=== PATIENT | female | born 1935 | race Caucasian/White ===

== ENCOUNTER 2017-09-08 14:55 | Observation (INO) | payer MEDICARE, OTHER ==
[2017-09-08] MEDS: ONDANSETRON 4 MG INJ IV (15:39)
[2017-09-08] MEDS: NITROGLYCERIN 2% 1 GM OINT PKT TD (15:40)
[2017-09-08] MEDS: ASPIRIN 81 MG TAB PO (15:40)
[2017-09-08 15:41] LABS: ADD MAN DIFF? NO
[2017-09-08 15:48] LABS: WHITE BLOOD COUNT 8.7 10^3/ul (4.8-10.8)
[2017-09-08 15:48] LABS: BASOPHILS % 0.5 % (0.0-2.0); EOSINOPHILS # 0.2 10^3/ul (0.0-0.5); HEMATOCRIT 37.6 % (37.0-47.0); HEMOGLOBIN 11.5 g/dl (12.0-16.0); LYMPHOCYTES % 23.3 % (15.0-51.0); MEAN CORPUSCULAR HEMOGLOBIN 26.7 pg (29.0-33.0); MEAN CORPUSCULAR HGB CONC 30.6 g/dl (32.0-37.0); MEAN CORPUSCULAR VOLUME 87.4 fl (82.0-101.0); MEAN PLATELET VOLUME 10.9 fl (7.4-10.4); MONOCYTE # 0.8 10^3/ul (0.3-0.9); NEUTROPHIL # 5.7 10^3/ul (1.6-7.5); NEUTROPHILS % 64.9 % (39.0-77.0); PLATELET COUNT 277 10^3/UL (140-415); RED CELL DISTRIBUTION WIDTH 14.5 % (11.5-14.5)
[2017-09-08 16:06] LABS: ANION GAP 8 (8-16); BLOOD UREA NITROGEN 22 mg/dl (7-20); CALCIUM 8.6 mg/dl (8.4-10.2); CARBON DIOXIDE 34 mmol/L (21-31); CHLORIDE 110 mmol/L (97-110); CREATININE 1.04 mg/dl (0.44-1.00); GLUCOSE 97 mg/dl (70-220); POTASSIUM 5.1 mmol/L (3.5-5.1); SODIUM 147 mmol/L (135-144)
[2017-09-08 16:18] LABS: TROPONIN-I < 0.010 ng/ml (0.000-0.120)
[2017-09-08] MEDS: morphine 4 MG/ML VIAL IV ×2 (16:19→17:40)
[2017-09-08] MEDS: ACETAMINOPHEN 325 MG TAB PO (16:23)
[2017-09-08 17:13] LABS: B-TYPE NATRIURETIC PEPTIDE 1220 PG/ML (0-450)
[2017-09-08] MEDS ORDERED: ONDANSETRON 4 MG INJ IV (18:30)
[2017-09-08] MEDS ORDERED: ACETAMINOPHEN 325 MG TAB PO (18:30)
[2017-09-08] MEDS: FUROSEMIDE 40 MG INJ IV (19:40)
[2017-09-08] MEDS: APIXABAN 5 MG TABLET PO (21:03)
[2017-09-08] MEDS: LOSARTAN 25 MG TAB PO (21:04)
[2017-09-08 23:33] LABS: CREATINE KINASE 73 IU/L (23-200)
[2017-09-08 23:45] LABS: CK INDEX 1.1; CK-MB 0.78 ng/ml (0.0-2.4)
[2017-09-08 23:46] LABS: TROPONIN-I < 0.010 ng/ml (0.000-0.120)
[2017-09-09 03:48] LABS: CREATINE KINASE 66 IU/L (23-200)
[2017-09-09 04:01] LABS: CK INDEX 1.1; TROPONIN-I 0.017 ng/ml (0.000-0.120)
[2017-09-09] MEDS: AMIODARONE 200 MG TAB PO (08:47)
[2017-09-09] MEDS: LOSARTAN 25 MG TAB PO ×2 (08:47→21:37)
[2017-09-09] MEDS: APIXABAN 5 MG TABLET PO ×2 (08:47→21:34)
[2017-09-09] MEDS: DILTIAZEM (CD) 240 MG CAP PO (08:47)
[2017-09-09] MEDS: FUROSEMIDE 20 MG INJ IV (08:53)
[2017-09-09] MEDS ORDERED: IBUPROFEN 200 MG TAB PO (09:30)
[2017-09-09] MEDS: IBUPROFEN 200 MG TAB PO (13:43)
[2017-09-09] MEDS: FAMOTIDINE 20 MG TAB PO (13:44)
[2017-09-09] MEDS: CELECOXIB 100 MG CAP PO ×2 (13:46→22:18)
[2017-09-09 14:56] LABS: HEMOGLOBIN A1C 6.1 % (0-5.9)
[2017-09-09 15:40] LABS: ADD UMIC YES; UR ASCORBIC ACID NEGATIVE (NEGATIVE); UR BILIRUBIN (Dip) NEGATIVE (NEGATIVE); UR BLOOD (Dip) 1+ mg/dL (NEGATIVE); UR CLARITY CLEAR (CLEAR); UR COLOR YELLOW (YELLOW); UR GLUCOSE (Dip) NEGATIVE (NEGATIVE); UR KETONES (Dip) NEGATIVE (NEGATIVE); UR LEUKOCYTE ESTERASE (Dip) NEGATIVE Leu/ul (NEGATIVE); UR NITRITE (Dip) NEGATIVE (NEGATIVE); UR RBC 4 /HPF (0-5); UR SPECIFIC GRAVITY (Dip) 1.016 (1.003-1.030); UR TOTAL PROTEIN (Dip) NEGATIVE (NEGATIVE); UR UROBILINOGEN (Dip) NEGATIVE (NEGATIVE); UR WBC 0 /HPF (0-5)
[2017-09-09 16:48] LABS: CHOL/HDL RATIO 3.5 RATIO; HDL CHOLESTEROL 53 mg/dl (33-92); LDL CHOLESTEROL,CALCULATED 104 mg/dl; TRIGLYCERIDES 159 mg/dl (0-149)
[2017-09-09 16:48] LABS: CHOLESTEROL 189 mg/dl (100-200)
[2017-09-09] MEDS: ONDANSETRON 4 MG INJ IV (23:25)
[2017-09-09] MEDS: morphine 2 MG INJ IV (23:26)
[2017-09-10] MEDS: FUROSEMIDE 40 MG TAB PO (06:01)
[2017-09-10 09:10] LABS: ADD MAN DIFF? NO
[2017-09-10 09:14] LABS: WHITE BLOOD COUNT 10.1 10^3/ul (4.8-10.8)
[2017-09-10 09:14] LABS: BASOPHILS % 0.3 % (0.0-2.0); EOSINOPHILS # 0.2 10^3/ul (0.0-0.5); EOSINOPHILS % 1.9 % (0.0-7.0); HEMATOCRIT 38.2 % (37.0-47.0); HEMOGLOBIN 11.6 g/dl (12.0-16.0); LYMPHOCYTES # 2.9 10^3/ul (0.8-2.9); LYMPHOCYTES % 28.5 % (15.0-51.0); MEAN CORPUSCULAR HEMOGLOBIN 26.4 pg (29.0-33.0); MEAN CORPUSCULAR HGB CONC 30.4 g/dl (32.0-37.0); MONOCYTE # 0.7 10^3/ul (0.3-0.9); NEUTROPHIL # 6.3 10^3/ul (1.6-7.5); NEUTROPHILS % 61.9 % (39.0-77.0); PLATELET COUNT 282 10^3/UL (140-415); RED BLOOD COUNT 4.39 10^6/ul (4.20-5.40); RED CELL DISTRIBUTION WIDTH 14.6 % (11.5-14.5)
[2017-09-10] MEDS: LOSARTAN 25 MG TAB PO (09:26)
[2017-09-10] MEDS: APIXABAN 5 MG TABLET PO (09:26)
[2017-09-10] MEDS: DILTIAZEM (CD) 240 MG CAP PO (09:26)
[2017-09-10] MEDS: CELECOXIB 100 MG CAP PO (09:27)
[2017-09-10] MEDS: FAMOTIDINE 20 MG TAB PO (09:27)
[2017-09-10] MEDS: AMIODARONE 200 MG TAB PO (09:27)
[2017-09-10 09:29] LABS: MAGNESIUM 2.3 mg/dl (1.7-2.5)
[2017-09-10 09:32] LABS: ANION GAP 12 (8-16); BLOOD UREA NITROGEN 28 mg/dl (7-20); CALCIUM 8.8 mg/dl (8.4-10.2); CARBON DIOXIDE 32 mmol/L (21-31); CHLORIDE 104 mmol/L (97-110); CREATININE 1.29 mg/dl (0.44-1.00); GLUCOSE 108 mg/dl (70-220); POTASSIUM 5.1 mmol/L (3.5-5.1); SODIUM 143 mmol/L (135-144)
[2017-09-10 10:18] LABS: ALANINE AMINOTRANSFERASE 20 IU/L (13-69); ALBUMIN 4.2 g/dl (3.3-4.9); ALKALINE PHOSPHATASE 63 IU/L (42-121); ASPARTATE AMINO TRANSFERASE 20 IU/L (15-46); BILIRUBIN,INDIRECT 0.3 mg/dl (0-1.1); BILIRUBIN,TOTAL 0.3 mg/dl (0.2-1.3); TOTAL PROTEIN 7.9 g/dl (6.1-8.1)
== END 2017-09-10 13:41 | disposition home health service (06) ==
LOC: MS3 18:22 → E/R 14:55 → MS3 23:58
DX: R07.89 Other chest pain (principal); M54.2 Cervicalgia; M25.519 Pain in unspecified shoulder; I13.0 Hypertensive heart and chronic kidney disease with heart failure and stage 1 through stage 4 chronic kidney disease, or unspecified chronic kidney disease; N18.9 Chronic kidney disease, unspecified; I50.30 Unspecified diastolic (congestive) heart failure; I48.0 Paroxysmal atrial fibrillation; Z79.01 Long term (current) use of anticoagulants; E66.9 Obesity, unspecified; Z68.39 Body mass index [BMI] 39.0-39.9, adult
CPT/HCPCS: 36415; 71045; 72050; 72072; 80048; 80061; 80076; 81001; 82306; 82550; 82553; 82607; 82652; 83036; 83735; 83880; 84443; 84484; 85025; 87086; 93005; 93306; 96374; 96375; 97162; 99285-25

== ENCOUNTER 2018-02-28 15:26 | Inpatient (IN) | payer MEDICARE, OTHER ==
[2018-02-28 17:36] LABS: ADD MAN DIFF? NO
[2018-02-28 17:44] LABS: WHITE BLOOD COUNT 22.6 10^3/ul (4.8-10.8)
[2018-02-28 17:44] LABS: BASOPHIL # 0.1 10^3/ul (0.0-0.1); BASOPHILS % 0.4 % (0.0-2.0); EOSINOPHILS # 0.1 10^3/ul (0.0-0.5); EOSINOPHILS % 0.4 % (0.0-7.0); HEMATOCRIT 35.4 % (37.0-47.0); HEMOGLOBIN 10.8 g/dl (12.0-16.0); LYMPHOCYTES % 8.8 % (15.0-51.0); MEAN CORPUSCULAR HEMOGLOBIN 26.2 pg (29.0-33.0); MEAN CORPUSCULAR HGB CONC 30.5 g/dl (32.0-37.0); MEAN CORPUSCULAR VOLUME 85.7 fl (82.0-101.0); MEAN PLATELET VOLUME 10.8 fl (7.4-10.4); MONOCYTE # 1.4 10^3/ul (0.3-0.9); MONOCYTES % 6.3 % (0.0-11.0); NEUTROPHIL # 18.8 10^3/ul (1.6-7.5); NEUTROPHILS % 83.3 % (39.0-77.0); PLATELET COUNT 338 10^3/UL (140-415); RED BLOOD COUNT 4.13 10^6/ul (4.20-5.40); RED CELL DISTRIBUTION WIDTH 15.2 % (11.5-14.5)
[2018-02-28] MEDS: ASPIRIN 325 MG TAB PO (17:46)
[2018-02-28] MEDS: ONDANSETRON 4 MG INJ IV ×3 (17:46→23:17)
[2018-02-28] MEDS: morphine 4 MG/ML VIAL IV (17:47)
[2018-02-28 18:00] LABS: INR 1.18; PROTIME 15.2 Sec (11.9-14.9); PT RATIO 1.2
[2018-02-28 18:01] LABS: PARTIAL THROMBOPLASTIN TIME 35.2 Sec (23.0-35.0)
[2018-02-28 18:03] LABS: ALANINE AMINOTRANSFERASE 9 IU/L (13-69); ALBUMIN 4.1 g/dl (3.3-4.9); ALBUMIN/GLOBULIN RATIO 1.13; ALKALINE PHOSPHATASE 72 IU/L (42-121); ANION GAP 10 (5-13); ASPARTATE AMINO TRANSFERASE 17 IU/L (15-46); BILIRUBIN,INDIRECT 0.3 mg/dl (0-1.1); BILIRUBIN,TOTAL 0.3 mg/dl (0.2-1.3); BLOOD UREA NITROGEN 22 mg/dl (7-20); CALCIUM 8.6 mg/dl (8.4-10.2); CARBON DIOXIDE 27 mmol/L (21-31); CHLORIDE 103 mmol/L (97-110); CREATINE KINASE 37 IU/L (23-200); CREATININE 1.11 mg/dl (0.44-1.00); GLUCOSE 112 mg/dl (70-220); LIPASE 28 U/L (23-300); POTASSIUM 4.2 mmol/L (3.5-5.1); SODIUM 140 mmol/L (135-144); TOTAL PROTEIN 7.7 g/dl (6.1-8.1)
[2018-02-28 18:13] LABS: B-TYPE NATRIURETIC PEPTIDE 589 PG/ML (0-450); CK INDEX 1.6; CK-MB 0.58 ng/ml (0.0-2.4)
[2018-02-28 18:17] LABS: TROPONIN-I < 0.012 ng/ml (0.000-0.120)
[2018-02-28] MEDS: SODIUM CHLORIDE 0.9% 1L BAG IV* (18:44)
[2018-02-28 18:52] LABS: ADD UMIC YES; UR ASCORBIC ACID NEGATIVE (NEGATIVE); UR BILIRUBIN (Dip) NEGATIVE (NEGATIVE); UR BLOOD (Dip) 2+ mg/dL (NEGATIVE); UR CLARITY SLIGHTLY CLOUDY (CLEAR); UR COLOR YELLOW (YELLOW); UR GLUCOSE (Dip) NEGATIVE (NEGATIVE); UR KETONES (Dip) NEGATIVE (NEGATIVE); UR LEUKOCYTE ESTERASE (Dip) 1+ Leu/ul (NEGATIVE); UR MUCUS FEW /HPF (NONE SEEN); UR NITRITE (Dip) NEGATIVE (NEGATIVE); UR RBC 12 /HPF (0-5); UR SPECIFIC GRAVITY (Dip) 1.026 (1.003-1.030); UR SQUAMOUS EPITHELIAL CELL FEW /HPF (FEW); UR TOTAL PROTEIN (Dip) 2+ mg/dl (NEGATIVE); UR UROBILINOGEN (Dip) 1+ mg/dL (NEGATIVE); UR WBC 10 /HPF (0-5)
[2018-02-28] MEDS: CEFTRIAXONE 1 GM/50 ML (PMX) 50 ML IVPB (19:32)
[2018-02-28] MEDS ORDERED: ACETAMINOPHEN 325 MG TAB PO (20:00)
[2018-02-28] MEDS ORDERED: BISACODYL (EC) 5 MG TAB PO (20:30)
[2018-02-28] MEDS ORDERED: NACL 0.9% 3 ML SYG IV (20:30)
[2018-02-28] MEDS ORDERED: DOCUSATE SODIUM 100 MG CAP PO (20:30)
[2018-02-28] MEDS: HYDROmorphONE 1 MG/ML SYG IV (20:38)
[2018-02-28] MEDS: SOD CHLORIDE 0.9% 100 ML (22:44)
[2018-02-28] MEDS: IODIXANOL LOCM 100 ML BTL (22:44)
[2018-02-28] MEDS: DILTIAZEM (CD) 240 MG CAP PO (23:17)
[2018-02-28] MEDS: APIXABAN 5 MG TABLET PO (23:17)
[2018-03-01 01:24] LABS: CREATINE KINASE 32 IU/L (23-200)
[2018-03-01 01:32] LABS: CK INDEX 2.1; CK-MB 0.68 ng/ml (0.0-2.4); TROPONIN-I < 0.012 ng/ml (0.000-0.120)
[2018-03-01] MEDS: ONDANSETRON 4 MG INJ IV ×2 (05:58→19:26)
[2018-03-01] MEDS: KETOROLAC 15 MG INJ IV (07:38)
[2018-03-01 08:01] LABS: ADD MAN DIFF? NO
[2018-03-01 08:04] LABS: BASOPHILS % 0.2 % (0.0-2.0); EOSINOPHILS # 0.1 10^3/ul (0.0-0.5); EOSINOPHILS % 0.3 % (0.0-7.0); HEMOGLOBIN 9.2 g/dl (12.0-16.0); LYMPHOCYTES # 1.1 10^3/ul (0.8-2.9); LYMPHOCYTES % 5.6 % (15.0-51.0); MEAN CORPUSCULAR HEMOGLOBIN 26.5 pg (29.0-33.0); MEAN CORPUSCULAR HGB CONC 30.7 g/dl (32.0-37.0); MEAN CORPUSCULAR VOLUME 86.5 fl (82.0-101.0); MEAN PLATELET VOLUME 10.7 fl (7.4-10.4); MONOCYTE # 1.3 10^3/ul (0.3-0.9); MONOCYTES % 6.7 % (0.0-11.0); NEUTROPHIL # 16.4 10^3/ul (1.6-7.5); NEUTROPHILS % 86.4 % (39.0-77.0); PLATELET COUNT 271 10^3/UL (140-415); RED BLOOD COUNT 3.47 10^6/ul (4.20-5.40); RED CELL DISTRIBUTION WIDTH 15.3 % (11.5-14.5)
[2018-03-01 08:24] LABS: HEMOGLOBIN A1C 5.7 % (0-5.9)
[2018-03-01 08:33] LABS: LACTIC ACID 0.9 mmol/L (0.5-2.0)
[2018-03-01] MEDS: MEMANTINE 10 MG TAB PO (08:33)
[2018-03-01] MEDS: APIXABAN 5 MG TABLET PO ×2 (08:33→20:30)
[2018-03-01] MEDS: PANTOPRAZOLE (EC) 40 MG TAB PO (08:33)
[2018-03-01] MEDS: AMIODARONE 200 MG TAB PO (08:34)
[2018-03-01] MEDS: DONEPEZIL 10 MG TAB PO (08:34)
[2018-03-01] MEDS: LOSARTAN 50 MG TAB PO (08:35)
[2018-03-01] MEDS: DILTIAZEM (CD) 240 MG CAP PO (08:35)
[2018-03-01] MEDS: DICLOFENAC SODIUM 1% GEL 100 GM TUBE TP ×4 (08:36→20:31)
[2018-03-01] MEDS: LORATADINE 10 MG TAB PO (08:36)
[2018-03-01 08:38] LABS: ALANINE AMINOTRANSFERASE 10 IU/L (13-69); ALBUMIN 3.3 g/dl (3.3-4.9); ALKALINE PHOSPHATASE 65 IU/L (42-121); ANION GAP 8 (5-13); ASPARTATE AMINO TRANSFERASE 14 IU/L (15-46); BILIRUBIN,INDIRECT 0.3 mg/dl (0-1.1); BILIRUBIN,TOTAL 0.3 mg/dl (0.2-1.3); BLOOD UREA NITROGEN 16 mg/dl (7-20); CALCIUM 7.8 mg/dl (8.4-10.2); CARBON DIOXIDE 25 mmol/L (21-31); CHLORIDE 106 mmol/L (97-110); CHOL/HDL RATIO 3.9 RATIO; CHOLESTEROL 118 mg/dl (100-200); CREATININE 0.96 mg/dl (0.44-1.00); GLUCOSE 123 mg/dl (70-220); HDL CHOLESTEROL 30 mg/dl (33-92); LDL CHOLESTEROL,CALCULATED 77 mg/dl; MAGNESIUM 2.1 mg/dl (1.7-2.5); POTASSIUM 4.2 mmol/L (3.5-5.1); SODIUM 139 mmol/L (135-144); TOTAL PROTEIN 6.6 g/dl (6.1-8.1); TRIGLYCERIDES 57 mg/dl (0-149)
[2018-03-01 09:26] LABS: CREATINE KINASE 43 IU/L (23-200)
[2018-03-01 09:39] LABS: CK INDEX 1.8; CK-MB 0.76 ng/ml (0.0-2.4); TROPONIN-I < 0.012 ng/ml (0.000-0.120)
[2018-03-01] MEDS ORDERED: ALBUTEROL/IPRATROPIUM (NEB) 3 ML AMP HHN (12:30)
[2018-03-01] MEDS ORDERED: FLUTICASONE/VILANTEROL 200-25 INH DEVICE INH (12:30)
[2018-03-01] MEDS: BACLOFEN 10 MG TAB PO ×2 (12:59→20:29)
[2018-03-01] MEDS: KETOROLAC 30 MG INJ IV (12:59)
[2018-03-01 14:38] LABS: LACTIC ACID 1.1 mmol/L (0.5-2.0)
[2018-03-01] MEDS: CEFTRIAXONE 1 GM/50 ML (PMX) 50 ML IVPB (16:52)
[2018-03-01] MEDS: ACETAMINOPHEN 325 MG TAB PO (20:30)
[2018-03-01] MEDS: ZOLPIDEM 5 MG TAB PO (22:57)
[2018-03-02] MEDS: APIXABAN 5 MG TABLET PO (09:05)
[2018-03-02] MEDS: BACLOFEN 10 MG TAB PO ×2 (09:06→13:12)
[2018-03-02] MEDS: DONEPEZIL 10 MG TAB PO (09:06)
[2018-03-02] MEDS: LORATADINE 10 MG TAB PO (09:06)
[2018-03-02] MEDS: PANTOPRAZOLE (EC) 40 MG TAB PO (09:06)
[2018-03-02] MEDS: DILTIAZEM (CD) 240 MG CAP PO (09:06)
[2018-03-02] MEDS: AMIODARONE 200 MG TAB PO (09:06)
[2018-03-02] MEDS: DICLOFENAC SODIUM 1% GEL 100 GM TUBE TP ×2 (09:07→13:12)
[2018-03-02] MEDS: LOSARTAN 50 MG TAB PO (09:07)
[2018-03-02] MEDS: MEMANTINE 10 MG TAB PO (09:07)
[2018-03-02] MEDS: KETOROLAC 15 MG INJ IV (14:40)
== END 2018-03-02 18:09 | disposition home or self-care (01) | DRG 872 ==
LOC: E/R 15:26 → TEL 19:39
DX: A41.9 Sepsis, unspecified organism (principal); N39.0 Urinary tract infection, site not specified; I50.32 Chronic diastolic (congestive) heart failure; R55 Syncope and collapse; R25.2 Cramp and spasm; R07.9 Chest pain, unspecified; S83.90XA Sprain of unspecified site of unspecified knee, initial encounter; S63.91XA Sprain of unspecified part of right wrist and hand, initial encounter; K80.20 Calculus of gallbladder without cholecystitis without obstruction; W01.0XXA Fall on same level from slipping, tripping and stumbling without subsequent striking against object, initial encounter; Z79.02 Long term (current) use of antithrombotics/antiplatelets; D50.9 Iron deficiency anemia, unspecified
CPT/HCPCS: 70450; 71045; 72125; 73130-RT; 73562; 74177; 80053; 80061; 81001; 82550; 82553; 83036; 83605; 83690; 83735; 83880; 84443; 84484; 85025; 85610; 85730; 87040; 87086; 93005; 93880; 96361; 96374; 96375; 97161; 99285-25; G0378

== ENCOUNTER 2018-03-21 15:22 | Inpatient (IN) | payer MEDICARE, OTHER ==
[2018-03-21] MEDS: SOD CHLORIDE 0.9% 1,000 ML IV ×3 (16:04→20:05)
[2018-03-21] MEDS: ONDANSETRON 4 MG INJ IV ×2 (16:04→20:05)
[2018-03-21 16:06] LABS: ADD MAN DIFF? NO
[2018-03-21 16:12] LABS: ABNORMAL IP MESSAGE 1; BASOPHIL # 0.1 10^3/ul (0.0-0.1); BASOPHILS % 0.2 % (0.0-2.0); EOSINOPHILS % 0.1 % (0.0-7.0); HEMATOCRIT 32.1 % (37.0-47.0); HEMOGLOBIN 10.2 g/dl (12.0-16.0); LYMPHOCYTES # 1.5 10^3/ul (0.8-2.9); LYMPHOCYTES % 6.6 % (15.0-51.0); MEAN CORPUSCULAR HGB CONC 31.8 g/dl (32.0-37.0); MEAN CORPUSCULAR VOLUME 81.9 fl (82.0-101.0); MEAN PLATELET VOLUME 11.1 fl (7.4-10.4); MONOCYTE # 0.8 10^3/ul (0.3-0.9); MONOCYTES % 3.3 % (0.0-11.0); NEUTROPHIL # 20.6 10^3/ul (1.6-7.5); NEUTROPHILS % 89.4 % (39.0-77.0); PLATELET COUNT 470 10^3/UL (140-415); RED BLOOD COUNT 3.92 10^6/ul (4.20-5.40); RED CELL DISTRIBUTION WIDTH 15.5 % (11.5-14.5)
[2018-03-21 16:26] LABS: POSITIVE DIFF @See below
[2018-03-21 16:27] LABS: ALANINE AMINOTRANSFERASE 13 IU/L (13-69); ALBUMIN 3.8 g/dl (3.3-4.9); ALBUMIN/GLOBULIN RATIO 1.02; ALKALINE PHOSPHATASE 72 IU/L (42-121); ANION GAP 16 (5-13); ASPARTATE AMINO TRANSFERASE 32 IU/L (15-46); BILIRUBIN,INDIRECT 0.3 mg/dl (0-1.1); BILIRUBIN,TOTAL 0.3 mg/dl (0.2-1.3); BLOOD UREA NITROGEN 53 mg/dl (7-20); CALCIUM 9.1 mg/dl (8.4-10.2); CARBON DIOXIDE 24 mmol/L (21-31); CHLORIDE 95 mmol/L (97-110); CREATININE 4.13 mg/dl (0.44-1.00); GLUCOSE 121 mg/dl (70-220); LIPASE 95 U/L (23-300); POTASSIUM 4.6 mmol/L (3.5-5.1); SODIUM 135 mmol/L (135-144); TOTAL PROTEIN 7.5 g/dl (6.1-8.1)
[2018-03-21 16:29] LABS: INR 1.13; PROTIME 14.7 Sec (11.9-14.9); PT RATIO 1.1
[2018-03-21 16:30] LABS: PARTIAL THROMBOPLASTIN TIME 22.2 Sec (23.0-35.0)
[2018-03-21 17:09] LABS: OCCULT BLOOD STOOL POSITIVE (NEGATIVE)
[2018-03-21 17:14] LABS: TROPONIN-I 0.039 ng/ml (0.000-0.120)
[2018-03-21] MEDS: PIPER-TAZO 2.25 GM (PMX) 50 ML IVPB (17:38)
[2018-03-21] MEDS ORDERED: NACL 0.9% 3 ML SYG IV (18:00)
[2018-03-21] MEDS ORDERED: LABETALOL HCL 20MG INJ IV (18:00)
[2018-03-21] MEDS: morphine 2 MG INJ IV (20:05)
[2018-03-21 23:30] LABS: HEMATOCRIT 26.8 % (37.0-47.0); HEMOGLOBIN 8.7 g/dl (12.0-16.0)
[2018-03-21 23:46] LABS: LACTIC ACID 0.7 mmol/L (0.5-2.0)
[2018-03-22] MEDS: ZOLPIDEM 5 MG TAB PO ×2 (00:53→21:01)
[2018-03-22] MEDS: PIPER-TAZO 2.25 GM (PMX) 50 ML IVPB ×4 (00:54→21:01)
[2018-03-22] MEDS: SOD CHLORIDE 0.9% 1,000 ML IV ×3 (04:00→22:32)
[2018-03-22] MEDS: PANTOPRAZOLE 40 MG INJ IV (05:32)
[2018-03-22] MEDS ORDERED: PANTOPRAZOLE (EC) 40 MG TAB PO (06:00)
[2018-03-22 06:57] LABS: ADD MAN DIFF? NO
[2018-03-22 07:08] LABS: BASOPHILS % 0.2 % (0.0-2.0); EOSINOPHILS # 0.1 10^3/ul (0.0-0.5); EOSINOPHILS % 0.3 % (0.0-7.0); HEMATOCRIT 26.8 % (37.0-47.0); HEMOGLOBIN 8.5 g/dl (12.0-16.0); LYMPHOCYTES # 1.4 10^3/ul (0.8-2.9); LYMPHOCYTES % 7.8 % (15.0-51.0); MEAN CORPUSCULAR HGB CONC 31.7 g/dl (32.0-37.0); MEAN PLATELET VOLUME 11.3 fl (7.4-10.4); MONOCYTE # 0.6 10^3/ul (0.3-0.9); MONOCYTES % 3.7 % (0.0-11.0); NEUTROPHIL # 15.2 10^3/ul (1.6-7.5); NEUTROPHILS % 87.5 % (39.0-77.0); PLATELET COUNT 389 10^3/UL (140-415); RED BLOOD COUNT 3.27 10^6/ul (4.20-5.40); RED CELL DISTRIBUTION WIDTH 15.7 % (11.5-14.5)
[2018-03-22 07:08] LABS: WHITE BLOOD COUNT 17.4 10^3/ul (4.8-10.8)
[2018-03-22 07:46] LABS: ALANINE AMINOTRANSFERASE 14 IU/L (13-69); ALBUMIN 3.2 g/dl (3.3-4.9); ALBUMIN/GLOBULIN RATIO 1.03; ALKALINE PHOSPHATASE 59 IU/L (42-121); ANION GAP 17 (5-13); ASPARTATE AMINO TRANSFERASE 21 IU/L (15-46); BILIRUBIN,INDIRECT 0.3 mg/dl (0-1.1); BILIRUBIN,TOTAL 0.3 mg/dl (0.2-1.3); BLOOD UREA NITROGEN 43 mg/dl (7-20); CALCIUM 8.2 mg/dl (8.4-10.2); CARBON DIOXIDE 20 mmol/L (21-31); CHLORIDE 104 mmol/L (97-110); CREATININE 3.22 mg/dl (0.44-1.00); GLUCOSE 100 mg/dl (70-220); MAGNESIUM 2.3 mg/dl (1.7-2.5); POTASSIUM 3.7 mmol/L (3.5-5.1); SODIUM 141 mmol/L (135-144); TOTAL PROTEIN 6.3 g/dl (6.1-8.1)
[2018-03-22 10:45] LABS: ADD UMIC YES; UR AMORPHOUS CRYSTAL FEW /HPF (NONE SEEN); UR ASCORBIC ACID NEGATIVE (NEGATIVE); UR BILIRUBIN (Dip) NEGATIVE (NEGATIVE); UR BLOOD (Dip) 1+ mg/dL (NEGATIVE); UR CLARITY CLOUDY (CLEAR); UR COLOR YELLOW (YELLOW); UR GLUCOSE (Dip) NEGATIVE (NEGATIVE); UR KETONES (Dip) NEGATIVE (NEGATIVE); UR LEUKOCYTE ESTERASE (Dip) NEGATIVE Leu/ul (NEGATIVE); UR NITRITE (Dip) NEGATIVE (NEGATIVE); UR RBC 3 /HPF (0-5); UR SPECIFIC GRAVITY (Dip) 1.016 (1.003-1.030); UR TOTAL PROTEIN (Dip) 1+ mg/dl (NEGATIVE); UR URIC ACID CRYSTAL MANY /HPF (NONE SEEN); UR UROBILINOGEN (Dip) NEGATIVE (NEGATIVE); UR WBC 18 /HPF (0-5)
[2018-03-22 10:55] LABS: CREATININE,URINE RANDOM 166.96 mg/dl (20-320)
[2018-03-22 10:55] LABS: SODIUM,URINE RANDOM 29 mmol/L (30-90)
[2018-03-22] MEDS: AMIODARONE 200 MG TAB PO (11:35)
[2018-03-22] MEDS: DILTIAZEM (CD) 240 MG CAP PO (11:35)
[2018-03-22] MEDS: BACLOFEN 10 MG TAB PO ×2 (13:25→21:01)
[2018-03-22] MEDS: ACETAMINOPHEN 325 MG TAB PO (13:43)
[2018-03-22] MEDS ORDERED: morphine LIQ (10 MG/5 ML) CUP PO (22:30)
[2018-03-23] MEDS: PIPER-TAZO 2.25 GM (PMX) 50 ML IVPB ×3 (06:08→21:29)
[2018-03-23] MEDS: PANTOPRAZOLE 40 MG INJ IV (06:08)
[2018-03-23] MEDS: AMIODARONE 200 MG TAB PO (08:26)
[2018-03-23] MEDS: BACLOFEN 10 MG TAB PO ×3 (08:26→20:14)
[2018-03-23] MEDS: LORATADINE 10 MG TAB PO (08:26)
[2018-03-23] MEDS: DILTIAZEM (CD) 240 MG CAP PO (09:00)
[2018-03-23 09:21] LABS: ADD MAN DIFF? NO
[2018-03-23 09:33] LABS: WHITE BLOOD COUNT 12.2 10^3/ul (4.8-10.8)
[2018-03-23 09:33] LABS: BASOPHILS % 0.3 % (0.0-2.0); EOSINOPHILS # 0.1 10^3/ul (0.0-0.5); HEMATOCRIT 24.8 % (37.0-47.0); HEMOGLOBIN 7.8 g/dl (12.0-16.0); LYMPHOCYTES # 1.1 10^3/ul (0.8-2.9); LYMPHOCYTES % 8.8 % (15.0-51.0); MEAN CORPUSCULAR HEMOGLOBIN 26.2 pg (29.0-33.0); MEAN CORPUSCULAR HGB CONC 31.5 g/dl (32.0-37.0); MEAN CORPUSCULAR VOLUME 83.2 fl (82.0-101.0); MONOCYTE # 0.5 10^3/ul (0.3-0.9); MONOCYTES % 4.1 % (0.0-11.0); NEUTROPHIL # 10.4 10^3/ul (1.6-7.5); NEUTROPHILS % 85.3 % (39.0-77.0); PLATELET COUNT 315 10^3/UL (140-415); RED BLOOD COUNT 2.98 10^6/ul (4.20-5.40); RED CELL DISTRIBUTION WIDTH 15.9 % (11.5-14.5)
[2018-03-23 09:44] LABS: ANION GAP 8 (5-13); BLOOD UREA NITROGEN 30 mg/dl (7-20); CARBON DIOXIDE 22 mmol/L (21-31); CHLORIDE 111 mmol/L (97-110); CREATININE 2.02 mg/dl (0.44-1.00); GLUCOSE 107 mg/dl (70-220); MAGNESIUM 2.3 mg/dl (1.7-2.5); PHOSPHORUS 3.3 mg/dl (2.5-4.9); POTASSIUM 3.7 mmol/L (3.5-5.1); SODIUM 141 mmol/L (135-144)
[2018-03-23 12:33] LABS: RETICULOCYTE RBC 2.95
[2018-03-23 12:33] LABS: RETICULOCYTE COUNT # 0.023 X10^6 (0.020-0.110); RETICULOCYTE COUNT % 0.8 % (0.5-1.5)
[2018-03-23 12:42] LABS: LACTATE DEHYDROGENASE 318 IU/L (313-618)
[2018-03-23 12:49] LABS: IRON 12 ug/dl (35-150)
[2018-03-23 12:58] LABS: % IRON SATURATION 6 % SAT (22-52); TOTAL IRON BINDING CAPACITY 206 ug/dl (241-421)
[2018-03-23 14:02] LABS: IMMEDIATE SPIN CROSSMATCH 1 1
[2018-03-23 14:08] LABS: FERRITIN 72.9 ng/ml (11.1-264.0)
[2018-03-23 14:43] LABS: CREATININE, RANDOM URINE 161 mg/dL (20-275); MICROALBUMIN 6.2 mg/dL; MICROALBUMIN/CREATININE RATIO 39 (<30)
[2018-03-23] MEDS: SOD CHLORIDE 0.9% 1,000 ML IV (16:16)
[2018-03-23] MEDS: ZOLPIDEM 5 MG TAB PO (21:28)
[2018-03-24] MEDS: PANTOPRAZOLE 40 MG INJ IV (05:38)
[2018-03-24] MEDS: PIPER-TAZO 2.25 GM (PMX) 50 ML IVPB ×3 (05:38→21:22)
[2018-03-24] MEDS: SOD CHLORIDE 0.9% 1,000 ML IV (05:38)
[2018-03-24] MEDS: LORAZEPAM 0.5 MG TAB PO (06:12)
[2018-03-24 07:05] LABS: ADD MAN DIFF? NO
[2018-03-24 07:12] LABS: BASOPHILS % 0.3 % (0.0-2.0); EOSINOPHILS # 0.2 10^3/ul (0.0-0.5); EOSINOPHILS % 1.7 % (0.0-7.0); HEMATOCRIT 30.2 % (37.0-47.0); HEMOGLOBIN 9.4 g/dl (12.0-16.0); LYMPHOCYTES # 1.7 10^3/ul (0.8-2.9); LYMPHOCYTES % 15.2 % (15.0-51.0); MEAN CORPUSCULAR HEMOGLOBIN 26.3 pg (29.0-33.0); MEAN CORPUSCULAR HGB CONC 31.1 g/dl (32.0-37.0); MEAN CORPUSCULAR VOLUME 84.4 fl (82.0-101.0); MEAN PLATELET VOLUME 11.6 fl (7.4-10.4); MONOCYTE # 0.6 10^3/ul (0.3-0.9); MONOCYTES % 5.2 % (0.0-11.0); NEUTROPHIL # 8.4 10^3/ul (1.6-7.5); NEUTROPHILS % 77.1 % (39.0-77.0); PLATELET COUNT 339 10^3/UL (140-415); RED BLOOD COUNT 3.58 10^6/ul (4.20-5.40); RED CELL DISTRIBUTION WIDTH 15.9 % (11.5-14.5)
[2018-03-24 07:12] LABS: WHITE BLOOD COUNT 10.9 10^3/ul (4.8-10.8)
[2018-03-24 08:02] LABS: ANION GAP 13 (5-13); BLOOD UREA NITROGEN 21 mg/dl (7-20); CALCIUM 8.8 mg/dl (8.4-10.2); CARBON DIOXIDE 22 mmol/L (21-31); CHLORIDE 110 mmol/L (97-110); CREATININE 1.51 mg/dl (0.44-1.00); GLUCOSE 106 mg/dl (70-220); MAGNESIUM 2.3 mg/dl (1.7-2.5); PHOSPHORUS 3.1 mg/dl (2.5-4.9); POTASSIUM 3.6 mmol/L (3.5-5.1); SODIUM 145 mmol/L (135-144)
[2018-03-24] MEDS: DILTIAZEM (CD) 240 MG CAP PO ×2 (09:00→13:39)
[2018-03-24] MEDS: SOD CHLORIDE 0.45% 1,000 ML IV (09:25)
[2018-03-24] MEDS: BACLOFEN 10 MG TAB PO ×2 (09:27→12:40)
[2018-03-24] MEDS: LORATADINE 10 MG TAB PO (09:28)
[2018-03-24] MEDS: AMIODARONE 200 MG TAB PO (09:28)
[2018-03-24] MEDS ORDERED: traZODone 50 MG TAB PO (11:00)
[2018-03-24 15:31] LABS: HAPTOGLOBIN 303 mg/dL (43-212)
[2018-03-24 16:43] LABS: AADO2 Arterial 18.6 mmHg (7.0-24.0); Allen Test ACCEPTAB; Arterial Base Excess -5.2 mmol/L (-3.0-3); Arterial Blood Gas Oxygen Sat 98.6 mmHG (95.0-100.0); Arterial COHb 0.3 % (0.0-3.0); Arterial Fraction of Oxyhgb 98.3 % (93.0-99.0); Arterial HCO3 18.7 mmol/L (22.0-26.0); Arterial MetHb 0 % (0.0-1.5); Arterial pCO2 30.3 mmhg (35-45); MODE NASAL CANNULA; Site Right Radial
[2018-03-24] MEDS: HALOPERIDOL 5 MG INJ IV (19:37)
[2018-03-24] MEDS: ALBUTEROL/IPRATROPIUM (NEB) 3 ML AMP HHN (20:00)
[2018-03-24 21:13] LABS: B-TYPE NATRIURETIC PEPTIDE 2550 PG/ML (0-450)
[2018-03-24] MEDS: ACETAMINOPHEN 325 MG TAB PO (21:23)
[2018-03-25] MEDS: ALBUTEROL/IPRATROPIUM (NEB) 3 ML AMP HHN ×4 (01:21→21:08)
[2018-03-25] MEDS: HALOPERIDOL 5 MG INJ IV (02:09)
[2018-03-25] MEDS: PANTOPRAZOLE 40 MG INJ IV (05:26)
[2018-03-25] MEDS: PIPER-TAZO 2.25 GM (PMX) 50 ML IVPB ×3 (05:27→20:34)
[2018-03-25] MEDS: SOD CHLORIDE 0.45% 1,000 ML IV (05:28)
[2018-03-25 07:00] LABS: ADD MAN DIFF? NO
[2018-03-25 07:19] LABS: BASOPHILS % 0.4 % (0.0-2.0); EOSINOPHILS # 0.1 10^3/ul (0.0-0.5); EOSINOPHILS % 1.5 % (0.0-7.0); HEMATOCRIT 29.7 % (37.0-47.0); HEMOGLOBIN 9.4 g/dl (12.0-16.0); LYMPHOCYTES # 1.2 10^3/ul (0.8-2.9); LYMPHOCYTES % 15.3 % (15.0-51.0); MEAN CORPUSCULAR HEMOGLOBIN 26.6 pg (29.0-33.0); MEAN CORPUSCULAR HGB CONC 31.6 g/dl (32.0-37.0); MEAN CORPUSCULAR VOLUME 83.9 fl (82.0-101.0); MEAN PLATELET VOLUME 11.3 fl (7.4-10.4); MONOCYTE # 0.6 10^3/ul (0.3-0.9); MONOCYTES % 7.6 % (0.0-11.0); NEUTROPHILS % 74.3 % (39.0-77.0); PLATELET COUNT 346 10^3/UL (140-415); RED BLOOD COUNT 3.54 10^6/ul (4.20-5.40); RED CELL DISTRIBUTION WIDTH 15.7 % (11.5-14.5)
[2018-03-25 07:19] LABS: WHITE BLOOD COUNT 8.1 10^3/ul (4.8-10.8)
[2018-03-25 07:38] LABS: ANION GAP 11 (5-13); BLOOD UREA NITROGEN 12 mg/dl (7-20); CALCIUM 8.9 mg/dl (8.4-10.2); CARBON DIOXIDE 24 mmol/L (21-31); CHLORIDE 109 mmol/L (97-110); CREATININE 1.06 mg/dl (0.44-1.00); GLUCOSE 113 mg/dl (70-220); MAGNESIUM 1.9 mg/dl (1.7-2.5); PHOSPHORUS 2.4 mg/dl (2.5-4.9); POTASSIUM 3.4 mmol/L (3.5-5.1); SODIUM 144 mmol/L (135-144)
[2018-03-25 07:40] LABS: IRON 24 ug/dl (35-150)
[2018-03-25 07:50] LABS: % IRON SATURATION 11 % SAT (22-52); TOTAL IRON BINDING CAPACITY 219 ug/dl (241-421)
[2018-03-25] MEDS: POTASSIUM CHLORIDE (SR) 20 MEQ TAB PO (08:26)
[2018-03-25 08:50] LABS: ALANINE AMINOTRANSFERASE 17 IU/L (13-69); ALBUMIN 3.2 g/dl (3.3-4.9); ALKALINE PHOSPHATASE 71 IU/L (42-121); ASPARTATE AMINO TRANSFERASE 17 IU/L (15-46); BILIRUBIN,INDIRECT 0.2 mg/dl (0-1.1); BILIRUBIN,TOTAL 0.2 mg/dl (0.2-1.3); TOTAL PROTEIN 6.6 g/dl (6.1-8.1)
[2018-03-25] MEDS: POTASSIUM CHLORIDE 20 MEQ POWDER FOR ORAL SOLN PO (09:31)
[2018-03-25] MEDS: LORATADINE 10 MG TAB PO (09:31)
[2018-03-25] MEDS: DILTIAZEM (CD) 240 MG CAP PO (09:32)
[2018-03-25] MEDS: AMIODARONE 200 MG TAB PO (09:32)
[2018-03-25] MEDS: FUROSEMIDE 20 MG INJ IV (09:33)
[2018-03-25] MEDS: ONDANSETRON 4 MG INJ IV (09:47)
[2018-03-25] MEDS: NEUTRA-PHOS 250 MG PACKET PO (09:48)
[2018-03-25] MEDS: ACETAMINOPHEN 325 MG TAB PO (09:56)
[2018-03-25] MEDS: morphine 2 MG INJ IV (14:12)
[2018-03-25] MEDS: SOD FERRIC GLUC COMPLX 125 MG in SOD CHLORIDE 0.9% 100 ML IVPB (14:51)
[2018-03-25] MEDS: HYDROCODONE/APAP (5/325) TAB PO ×2 (16:12→20:34)
[2018-03-26] MEDS: PIPER-TAZO 2.25 GM (PMX) 50 ML IVPB (04:45)
[2018-03-26] MEDS: PANTOPRAZOLE 40 MG INJ IV (04:45)
[2018-03-26 06:02] LABS: ADD MAN DIFF? NO
[2018-03-26 06:03] LABS: BASOPHILS % 0.4 % (0.0-2.0); EOSINOPHILS # 0.3 10^3/ul (0.0-0.5); EOSINOPHILS % 2.7 % (0.0-7.0); HEMATOCRIT 29.2 % (37.0-47.0); HEMOGLOBIN 9.2 g/dl (12.0-16.0); LYMPHOCYTES # 1.4 10^3/ul (0.8-2.9); LYMPHOCYTES % 13.4 % (15.0-51.0); MEAN CORPUSCULAR HEMOGLOBIN 26.2 pg (29.0-33.0); MEAN CORPUSCULAR HGB CONC 31.5 g/dl (32.0-37.0); MEAN CORPUSCULAR VOLUME 83.2 fl (82.0-101.0); MEAN PLATELET VOLUME 10.6 fl (7.4-10.4); MONOCYTE # 0.8 10^3/ul (0.3-0.9); MONOCYTES % 7.6 % (0.0-11.0); NEUTROPHIL # 7.5 10^3/ul (1.6-7.5); NEUTROPHILS % 74.7 % (39.0-77.0); PLATELET COUNT 318 10^3/UL (140-415); RED BLOOD COUNT 3.51 10^6/ul (4.20-5.40); RED CELL DISTRIBUTION WIDTH 15.9 % (11.5-14.5)
[2018-03-26 06:03] LABS: WHITE BLOOD COUNT 10.1 10^3/ul (4.8-10.8)
[2018-03-26 07:15] LABS: ANION GAP 10 (5-13); BLOOD UREA NITROGEN 8 mg/dl (7-20); CALCIUM 8.8 mg/dl (8.4-10.2); CARBON DIOXIDE 27 mmol/L (21-31); CHLORIDE 106 mmol/L (97-110); GLUCOSE 116 mg/dl (70-220); MAGNESIUM 1.8 mg/dl (1.7-2.5); PHOSPHORUS 3.3 mg/dl (2.5-4.9); POTASSIUM 3.6 mmol/L (3.5-5.1); SODIUM 143 mmol/L (135-144)
[2018-03-26] MEDS: ALBUTEROL/IPRATROPIUM (NEB) 3 ML AMP HHN ×3 (09:09→20:38)
[2018-03-26] MEDS: DILTIAZEM (CD) 240 MG CAP PO (09:16)
[2018-03-26] MEDS: HYDROCODONE/APAP (5/325) TAB PO ×2 (09:17→21:20)
[2018-03-26] MEDS: AMIODARONE 200 MG TAB PO (09:17)
[2018-03-26] MEDS: LORATADINE 10 MG TAB PO (09:17)
[2018-03-26] MEDS: CIPROFLOXACIN 400MG/D5W 200 ML IVPB ×2 (10:49→20:22)
[2018-03-26] MEDS: ONDANSETRON 4 MG INJ IV (13:20)
[2018-03-26] MEDS: BACLOFEN 10 MG TAB PO ×2 (13:22→20:21)
[2018-03-26] MEDS: metroNIDAZOLE 500 MG/NS (PMX) 100 ML IVPB ×2 (13:33→21:21)
[2018-03-26] MEDS: SOD FERRIC GLUC COMPLX 125 MG in SOD CHLORIDE 0.9% 100 ML IVPB (14:52)
[2018-03-26] MEDS: APIXABAN 5 MG TABLET PO (20:21)
[2018-03-27] MEDS: ACETAMINOPHEN 325 MG TAB PO (00:54)
[2018-03-27] MEDS: metroNIDAZOLE 500 MG/NS (PMX) 100 ML IVPB ×3 (04:50→21:32)
[2018-03-27] MEDS: PANTOPRAZOLE (EC) 40 MG TAB PO (05:08)
[2018-03-27 06:30] LABS: ANION GAP 10 (5-13); BLOOD UREA NITROGEN 6 mg/dl (7-20); CARBON DIOXIDE 28 mmol/L (21-31); CHLORIDE 106 mmol/L (97-110); CREATININE 0.91 mg/dl (0.44-1.00); GLUCOSE 118 mg/dl (70-220); MAGNESIUM 1.7 mg/dl (1.7-2.5); PHOSPHORUS 3.4 mg/dl (2.5-4.9); POTASSIUM 3.4 mmol/L (3.5-5.1); SODIUM 144 mmol/L (135-144)
[2018-03-27] MEDS: ALBUTEROL/IPRATROPIUM (NEB) 3 ML AMP HHN ×3 (08:00→18:05)
[2018-03-27] MEDS: BACLOFEN 10 MG TAB PO ×3 (08:20→20:15)
[2018-03-27] MEDS: APIXABAN 5 MG TABLET PO ×2 (08:20→20:15)
[2018-03-27] MEDS: DILTIAZEM (CD) 240 MG CAP PO (08:20)
[2018-03-27] MEDS: LORATADINE 10 MG TAB PO (08:20)
[2018-03-27] MEDS: AMIODARONE 200 MG TAB PO (08:20)
[2018-03-27] MEDS: CIPROFLOXACIN 400MG/D5W 200 ML IVPB ×2 (08:28→20:17)
[2018-03-27] MEDS: ONDANSETRON 4 MG INJ IV (08:35)
[2018-03-27] MEDS: POTASSIUM CHLORIDE (SR) 20 MEQ TAB PO (10:12)
[2018-03-27] MEDS: SOD FERRIC GLUC COMPLX 125 MG in SOD CHLORIDE 0.9% 100 ML IVPB (12:43)
[2018-03-27] MEDS: POTASSIUM CHLORIDE 20 MEQ POWDER FOR ORAL SOLN PO (15:10)
[2018-03-27] MEDS: HYDROCODONE/APAP (5/325) TAB PO (21:32)
[2018-03-28] MEDS: metroNIDAZOLE 500 MG/NS (PMX) 100 ML IVPB ×3 (05:18→22:13)
[2018-03-28] MEDS: PANTOPRAZOLE (EC) 40 MG TAB PO (05:20)
[2018-03-28 07:05] LABS: ADD MAN DIFF? NO
[2018-03-28 07:13] LABS: WHITE BLOOD COUNT 10.8 10^3/ul (4.8-10.8)
[2018-03-28 07:13] LABS: BASOPHIL # 0.1 10^3/ul (0.0-0.1); BASOPHILS % 0.5 % (0.0-2.0); EOSINOPHILS # 0.2 10^3/ul (0.0-0.5); HEMATOCRIT 29.3 % (37.0-47.0); HEMOGLOBIN 9.1 g/dl (12.0-16.0); LYMPHOCYTES # 1.4 10^3/ul (0.8-2.9); LYMPHOCYTES % 13.2 % (15.0-51.0); MEAN CORPUSCULAR HEMOGLOBIN 26.1 pg (29.0-33.0); MEAN CORPUSCULAR HGB CONC 31.1 g/dl (32.0-37.0); MEAN PLATELET VOLUME 10.9 fl (7.4-10.4); MONOCYTE # 0.8 10^3/ul (0.3-0.9); MONOCYTES % 7.3 % (0.0-11.0); NEUTROPHIL # 8.1 10^3/ul (1.6-7.5); NEUTROPHILS % 75.6 % (39.0-77.0); PLATELET COUNT 302 10^3/UL (140-415); RED BLOOD COUNT 3.49 10^6/ul (4.20-5.40); RED CELL DISTRIBUTION WIDTH 16.4 % (11.5-14.5)
[2018-03-28 07:58] LABS: ANION GAP 11 (5-13); BLOOD UREA NITROGEN 6 mg/dl (7-20); CARBON DIOXIDE 27 mmol/L (21-31); CHLORIDE 106 mmol/L (97-110); CREATININE 0.83 mg/dl (0.44-1.00); GLUCOSE 111 mg/dl (70-220); MAGNESIUM 1.6 mg/dl (1.7-2.5); PHOSPHORUS 3.2 mg/dl (2.5-4.9); POTASSIUM 3.7 mmol/L (3.5-5.1); SODIUM 144 mmol/L (135-144)
[2018-03-28] MEDS: ALBUTEROL/IPRATROPIUM (NEB) 3 ML AMP HHN ×3 (08:39→20:40)
[2018-03-28] MEDS: DILTIAZEM (CD) 240 MG CAP PO (09:12)
[2018-03-28] MEDS: LORATADINE 10 MG TAB PO (09:13)
[2018-03-28] MEDS: APIXABAN 5 MG TABLET PO ×2 (09:13→20:34)
[2018-03-28] MEDS: AMIODARONE 200 MG TAB PO (09:13)
[2018-03-28] MEDS: BACLOFEN 10 MG TAB PO ×3 (09:13→20:34)
[2018-03-28] MEDS: CIPROFLOXACIN 400MG/D5W 200 ML IVPB ×2 (09:17→20:34)
[2018-03-28] MEDS ORDERED: MAGNESIUM OXIDE 400 MG TAB PO (09:30)
[2018-03-28] MEDS: MAGNESIUM SULFATE 2 GM/50 ML 50 ML IVPB (10:32)
[2018-03-28] MEDS: POLYETHYLENE GLYCOL 17 GM PACKET PO (13:26)
[2018-03-28] MEDS: SOD FERRIC GLUC COMPLX 125 MG in SOD CHLORIDE 0.9% 100 ML IVPB (13:27)
[2018-03-28] MEDS: traZODone 50 MG TAB PO (20:34)
[2018-03-28] MEDS ORDERED: VITAMIN A & D 5 GM OINT PACKET TOP (22:17)
[2018-03-28] MEDS: HYDROCODONE/APAP (5/325) TAB PO (23:45)
[2018-03-29] MEDS: PANTOPRAZOLE (EC) 40 MG TAB PO (05:06)
[2018-03-29] MEDS: metroNIDAZOLE 500 MG/NS (PMX) 100 ML IVPB ×2 (05:06→16:03)
[2018-03-29 05:53] LABS: ADD MAN DIFF? NO
[2018-03-29 05:54] LABS: BASOPHILS % 0.3 % (0.0-2.0); EOSINOPHILS # 0.2 10^3/ul (0.0-0.5); EOSINOPHILS % 1.7 % (0.0-7.0); HEMOGLOBIN 8.8 g/dl (12.0-16.0); LYMPHOCYTES # 1.8 10^3/ul (0.8-2.9); LYMPHOCYTES % 14.9 % (15.0-51.0); MEAN CORPUSCULAR HEMOGLOBIN 26.3 pg (29.0-33.0); MEAN CORPUSCULAR HGB CONC 31.4 g/dl (32.0-37.0); MEAN CORPUSCULAR VOLUME 83.8 fl (82.0-101.0); MEAN PLATELET VOLUME 10.2 fl (7.4-10.4); MONOCYTE # 0.9 10^3/ul (0.3-0.9); MONOCYTES % 7.1 % (0.0-11.0); NEUTROPHILS % 74.6 % (39.0-77.0); PLATELET COUNT 295 10^3/UL (140-415); RED BLOOD COUNT 3.34 10^6/ul (4.20-5.40); RED CELL DISTRIBUTION WIDTH 16.3 % (11.5-14.5)
[2018-03-29 05:54] LABS: WHITE BLOOD COUNT 12.1 10^3/ul (4.8-10.8)
[2018-03-29 06:48] LABS: ANION GAP 7 (5-13); BLOOD UREA NITROGEN 9 mg/dl (7-20); CALCIUM 8.6 mg/dl (8.4-10.2); CARBON DIOXIDE 27 mmol/L (21-31); CHLORIDE 106 mmol/L (97-110); CREATININE 0.91 mg/dl (0.44-1.00); GLUCOSE 127 mg/dl (70-220); PHOSPHORUS 2.9 mg/dl (2.5-4.9); POTASSIUM 3.7 mmol/L (3.5-5.1); SODIUM 140 mmol/L (135-144)
[2018-03-29] MEDS: ALBUTEROL/IPRATROPIUM (NEB) 3 ML AMP HHN ×3 (08:00→20:35)
[2018-03-29] MEDS: APIXABAN 5 MG TABLET PO (09:58)
[2018-03-29] MEDS: DILTIAZEM (CD) 240 MG CAP PO (09:59)
[2018-03-29] MEDS: AMIODARONE 200 MG TAB PO (10:00)
[2018-03-29] MEDS: BACLOFEN 10 MG TAB PO ×3 (10:00→21:39)
[2018-03-29] MEDS: LORATADINE 10 MG TAB PO (10:02)
[2018-03-29] MEDS: DOCUSATE SODIUM 100 MG CAP PO (10:02)
[2018-03-29] MEDS: POLYETHYLENE GLYCOL 17 GM PACKET PO (10:02)
[2018-03-29] MEDS: CIPROFLOXACIN 400MG/D5W 200 ML IVPB (10:14)
[2018-03-29] MEDS: SOD FERRIC GLUC COMPLX 125 MG in SOD CHLORIDE 0.9% 100 ML IVPB (14:17)
[2018-03-29] MEDS: traZODone 50 MG TAB PO (21:39)
== END 2018-03-29 21:47 | disposition home health service (06) | DRG 871 ==
LOC: E/R 15:22 → TEL 17:45
PROC: 30233N1 Transfusion of Nonautologous Red Blood Cells into Peripheral Vein, Percutaneous Approach (ICD-10-PCS; 2018-03-23)
PROC: 4A033R1 Measurement of Arterial Saturation, Peripheral, Percutaneous Approach (ICD-10-PCS; principal; 2018-03-24)
DX: A41.9 Sepsis, unspecified organism (principal); G92 Toxic encephalopathy; I50.33 Acute on chronic diastolic (congestive) heart failure; A09 Infectious gastroenteritis and colitis, unspecified; N17.9 Acute kidney failure, unspecified; I13.0 Hypertensive heart and chronic kidney disease with heart failure and stage 1 through stage 4 chronic kidney disease, or unspecified chronic kidney disease; E87.0 Hyperosmolality and hypernatremia; K92.1 Melena; E83.42 Hypomagnesemia; E78.5 Hyperlipidemia, unspecified; I48.0 Paroxysmal atrial fibrillation; N18.3 Chronic kidney disease, stage 3 (moderate); K80.20 Calculus of gallbladder without cholecystitis without obstruction; K44.9 Diaphragmatic hernia without obstruction or gangrene; K59.00 Constipation, unspecified; D50.9 Iron deficiency anemia, unspecified; Z79.01 Long term (current) use of anticoagulants; Z90.710 Acquired absence of both cervix and uterus
CPT/HCPCS: 36415; 36430; 36600; 71045; 74176; 76775; 80048; 80053; 80076; 81001; 81003; 82043; 82270; 82728; 82803; 83010; 83036; 83540; 83605; 83615; 83690; 83735; 83880; 84100; 84155; 84300; 84484; 85014; 85018; 85025; 85045; 85610; 85730; 86850; 86900; 86901; 86920; 87040; 87045; 87075; 87086; 93005; 94640; 94664; 96361; 96374; 96375; 97116; 97162; 97530; 99285-25

== ENCOUNTER 2018-08-09 19:51 | Inpatient (IN) | payer MEDICARE, OTHER ==
[2018-08-09 20:45] LABS: ADD MAN DIFF? NO
[2018-08-09 20:47] LABS: WHITE BLOOD COUNT 11.7 10^3/ul (4.8-10.8)
[2018-08-09 20:47] LABS: BASOPHIL # 0.1 10^3/ul (0.0-0.1); BASOPHILS % 0.4 % (0.0-2.0); EOSINOPHILS # 0.1 10^3/ul (0.0-0.5); HEMATOCRIT 30.6 % (37.0-47.0); HEMOGLOBIN 9.7 g/dl (12.0-16.0); LYMPHOCYTES # 2.2 10^3/ul (0.8-2.9); LYMPHOCYTES % 18.5 % (15.0-51.0); MEAN CORPUSCULAR HEMOGLOBIN 27.1 pg (29.0-33.0); MEAN CORPUSCULAR HGB CONC 31.7 g/dl (32.0-37.0); MEAN CORPUSCULAR VOLUME 85.5 fl (82.0-101.0); MEAN PLATELET VOLUME 11.1 fl (7.4-10.4); MONOCYTE # 0.8 10^3/ul (0.3-0.9); MONOCYTES % 6.7 % (0.0-11.0); NEUTROPHIL # 8.6 10^3/ul (1.6-7.5); NEUTROPHILS % 73.1 % (39.0-77.0); PLATELET COUNT 239 10^3/UL (140-415); RED BLOOD COUNT 3.58 10^6/ul (4.20-5.40); RED CELL DISTRIBUTION WIDTH 14.3 % (11.5-14.5)
[2018-08-09 21:04] LABS: ALANINE AMINOTRANSFERASE 33 IU/L (13-69); ALBUMIN/GLOBULIN RATIO 1.21; ALKALINE PHOSPHATASE 60 IU/L (42-121); ANION GAP 9 (5-13); ASPARTATE AMINO TRANSFERASE 26 IU/L (15-46); BILIRUBIN,INDIRECT 0.3 mg/dl (0-1.1); BILIRUBIN,TOTAL 0.3 mg/dl (0.2-1.3); BLOOD UREA NITROGEN 40 mg/dl (7-20); CALCIUM 9.3 mg/dl (8.4-10.2); CARBON DIOXIDE 26 mmol/L (21-31); CHLORIDE 106 mmol/L (97-110); CREATININE 1.71 mg/dl (0.44-1.00); GLUCOSE 98 mg/dl (70-220); POTASSIUM 5.1 mmol/L (3.5-5.1); SODIUM 141 mmol/L (135-144); TOTAL PROTEIN 7.3 g/dl (6.1-8.1)
[2018-08-09 21:07] LABS: PROTIME 16.3 Sec (11.9-14.9); PT RATIO 1.3
[2018-08-09 21:16] LABS: B-TYPE NATRIURETIC PEPTIDE 6600 PG/ML (0-450); TROPONIN-I < 0.012 ng/ml (0.000-0.120)
[2018-08-09] MEDS: FUROSEMIDE 40 MG INJ IV (22:06)
[2018-08-09] MEDS: METOPROLOL 5 MG INJ IV (22:08)
[2018-08-09 22:35] LABS: URINE BLOOD (Dip) POC Trace-intact (NEGATIVE); URINE GLUCOSE (Dip) POC Negative (NEGATIVE); URINE KETONES (Dip) POC Negative (NEGATIVE); URINE LEUKOCYTE EST (Dip) POC Trace (NEGATIVE); URINE NITRITE (Dip) POC Negative (NEGATIVE); URINE TOTAL PROTEIN POC Negative (NEGATIVE)
[2018-08-10] MEDS ORDERED: IBANDRONATE SODIUM 150 MG PO (01:00)
[2018-08-10] MEDS ORDERED: NITROGLYCERIN (SL) 0.4 MG TAB SL (01:00)
[2018-08-10] MEDS ORDERED: POLYETHYLENE GLYCOL 17 GM PACKET PO (01:00)
[2018-08-10] MEDS ORDERED: HYDROCODONE/APAP (5/325) TAB PO (01:00)
[2018-08-10] MEDS ORDERED: ACETAMINOPHEN 500 MG TAB PO (01:00)
[2018-08-10] MEDS ORDERED: NACL 0.9% 3 ML SYG IV (01:00)
[2018-08-10 01:05] LABS: LACTIC ACID 0.8 mmol/L (0.5-2.0)
[2018-08-10 01:09] LABS: CREATINE KINASE 39 IU/L (23-200)
[2018-08-10 01:23] LABS: CK INDEX 1.4; CK-MB 0.54 ng/ml (0.0-2.4); TROPONIN-I < 0.012 ng/ml (0.000-0.120)
[2018-08-10] MEDS: AMIODARONE 200 MG TAB PO ×4 (02:46→21:37)
[2018-08-10] MEDS: LORAZEPAM 0.5 MG TAB PO (02:47)
[2018-08-10] MEDS: PANTOPRAZOLE (EC) 40 MG TAB PO (08:39)
[2018-08-10] MEDS: hydrOXYzine HCL 25 MG TAB PO (08:39)
[2018-08-10] MEDS: BACLOFEN 10 MG TAB PO ×3 (08:39→21:38)
[2018-08-10] MEDS: CYANOCOBALAMIN 500 MCG TAB PO (08:39)
[2018-08-10] MEDS: FERROUS SULFATE (EC) 325 MG TAB PO (08:39)
[2018-08-10] MEDS: MELOXICAM 15 MG TAB PO (08:39)
[2018-08-10] MEDS: APIXABAN 5 MG TABLET PO ×2 (08:39→21:38)
[2018-08-10] MEDS: LORATADINE 10 MG TAB PO (08:39)
[2018-08-10] MEDS: DILTIAZEM (CD) 240 MG CAP PO (08:40)
[2018-08-10] MEDS: METOPROLOL (XL) 50 MG TAB PO (08:40)
[2018-08-10] MEDS: FUROSEMIDE 40 MG TAB PO (08:40)
[2018-08-10 08:56] LABS: ADD MAN DIFF? NO
[2018-08-10] MEDS: DICLOFENAC SODIUM 1% GEL 100 GM TUBE TP ×4 (09:00→21:00)
[2018-08-10 09:02] LABS: WHITE BLOOD COUNT 8.7 10^3/ul (4.8-10.8)
[2018-08-10 09:02] LABS: BASOPHIL # 0.1 10^3/ul (0.0-0.1); BASOPHILS % 0.6 % (0.0-2.0); EOSINOPHILS # 0.2 10^3/ul (0.0-0.5); EOSINOPHILS % 1.7 % (0.0-7.0); HEMATOCRIT 29.3 % (37.0-47.0); HEMOGLOBIN 9.3 g/dl (12.0-16.0); LYMPHOCYTES # 2.2 10^3/ul (0.8-2.9); LYMPHOCYTES % 25.2 % (15.0-51.0); MEAN CORPUSCULAR HGB CONC 31.7 g/dl (32.0-37.0); MEAN CORPUSCULAR VOLUME 85.2 fl (82.0-101.0); MEAN PLATELET VOLUME 11.5 fl (7.4-10.4); MONOCYTE # 0.7 10^3/ul (0.3-0.9); MONOCYTES % 8.4 % (0.0-11.0); NEUTROPHIL # 5.6 10^3/ul (1.6-7.5); NEUTROPHILS % 63.9 % (39.0-77.0); PLATELET COUNT 201 10^3/UL (140-415); RED BLOOD COUNT 3.44 10^6/ul (4.20-5.40); RED CELL DISTRIBUTION WIDTH 14.5 % (11.5-14.5)
[2018-08-10 09:17] LABS: CREATINE KINASE 35 IU/L (23-200)
[2018-08-10 09:27] LABS: CK INDEX 1.5; CK-MB 0.54 ng/ml (0.0-2.4)
[2018-08-10 09:28] LABS: ALANINE AMINOTRANSFERASE 33 IU/L (13-69); ALBUMIN 3.6 g/dl (3.3-4.9); ALBUMIN/GLOBULIN RATIO 1.09; ALKALINE PHOSPHATASE 61 IU/L (42-121); ANION GAP 6 (5-13); ASPARTATE AMINO TRANSFERASE 20 IU/L (15-46); BILIRUBIN,INDIRECT 0.3 mg/dl (0-1.1); BILIRUBIN,TOTAL 0.3 mg/dl (0.2-1.3); BLOOD UREA NITROGEN 39 mg/dl (7-20); CARBON DIOXIDE 29 mmol/L (21-31); CHLORIDE 107 mmol/L (97-110); CREATININE 1.51 mg/dl (0.44-1.00); GLUCOSE 107 mg/dl (70-220); MAGNESIUM 2.2 mg/dl (1.7-2.5); POTASSIUM 4.5 mmol/L (3.5-5.1); SODIUM 142 mmol/L (135-144); TOTAL PROTEIN 6.9 g/dl (6.1-8.1)
[2018-08-10 09:31] LABS: TROPONIN-I < 0.012 ng/ml (0.000-0.120)
[2018-08-10] MEDS: FUROSEMIDE 20 MG INJ IV (14:54)
[2018-08-10] MEDS: METOPROLOL 50 MG TAB PO ×2 (14:54→21:38)
[2018-08-10] MEDS ORDERED: ACETAMINOPHEN 325 MG TAB PO (15:00)
[2018-08-10] MEDS: BUDESONIDE (NEB) 0.5MG/2ML AMP INH (20:52)
[2018-08-10] MEDS: ARFORMOTEROL TARTRATE 15MCG/2 ML AMP INH (20:52)
[2018-08-10] MEDS: DILTIAZEM (CD) 180 MG CAP PO (21:00)
[2018-08-10] MEDS ORDERED: ATORVASTATIN 40 MG TAB PO (21:00)
[2018-08-10] MEDS: MEMANTINE 10 MG TAB PO (21:38)
[2018-08-10] MEDS: ONDANSETRON 4 MG INJ IV (22:56)
[2018-08-11] MEDS: LORAZEPAM 0.5 MG TAB PO (00:23)
[2018-08-11] MEDS: IPRATROPIUM (NEB) 0.5 MG/2.5 ML AMP NEB (03:28)
[2018-08-11] MEDS: LEVALBUTEROL (NEB) 0.63 MG/3 ML AMP HHN (03:28)
[2018-08-11] MEDS: ONDANSETRON 4 MG INJ IV ×3 (05:05→21:29)
[2018-08-11 05:36] LABS: ADD MAN DIFF? NO
[2018-08-11 05:37] LABS: BASOPHIL # 0.1 10^3/ul (0.0-0.1); BASOPHILS % 0.4 % (0.0-2.0); EOSINOPHILS # 0.1 10^3/ul (0.0-0.5); EOSINOPHILS % 0.8 % (0.0-7.0); HEMATOCRIT 32.8 % (37.0-47.0); HEMOGLOBIN 10.5 g/dl (12.0-16.0); LYMPHOCYTES % 21.5 % (15.0-51.0); MEAN CORPUSCULAR HEMOGLOBIN 27.2 pg (29.0-33.0); MEAN PLATELET VOLUME 11.2 fl (7.4-10.4); MONOCYTE # 0.9 10^3/ul (0.3-0.9); MONOCYTES % 6.6 % (0.0-11.0); NEUTROPHIL # 9.9 10^3/ul (1.6-7.5); NEUTROPHILS % 70.2 % (39.0-77.0); PLATELET COUNT 238 10^3/UL (140-415); RED BLOOD COUNT 3.86 10^6/ul (4.20-5.40); RED CELL DISTRIBUTION WIDTH 14.7 % (11.5-14.5)
[2018-08-11 05:37] LABS: WHITE BLOOD COUNT 14.1 10^3/ul (4.8-10.8)
[2018-08-11 05:55] LABS: ANION GAP 14 (5-13); BLOOD UREA NITROGEN 47 mg/dl (7-20); CALCIUM 9.6 mg/dl (8.4-10.2); CARBON DIOXIDE 23 mmol/L (21-31); CHLORIDE 104 mmol/L (97-110); CREATININE 1.95 mg/dl (0.44-1.00); GLUCOSE 151 mg/dl (70-220); MAGNESIUM 2.2 mg/dl (1.7-2.5); PHOSPHORUS 6.2 mg/dl (2.5-4.9); SODIUM 141 mmol/L (135-144)
[2018-08-11 06:27] LABS: THYROID STIMULATING HORMONE < 0.015 MIU/L (0.465-4.680)
[2018-08-11] MEDS: METOPROLOL 50 MG TAB PO ×3 (06:46→21:53)
[2018-08-11 08:03] LABS: HEMOGLOBIN A1C 5.9 % (0-5.9)
[2018-08-11] MEDS: THIAMINE 100 MG TAB PO (09:00)
[2018-08-11] MEDS: DICLOFENAC SODIUM 1% GEL 100 GM TUBE TP (09:00)
[2018-08-11] MEDS: ARFORMOTEROL TARTRATE 15MCG/2 ML AMP INH ×2 (09:41→20:00)
[2018-08-11] MEDS: BUDESONIDE (NEB) 0.5MG/2ML AMP INH ×2 (09:42→20:00)
[2018-08-11] MEDS: BACLOFEN 10 MG TAB PO ×3 (10:25→21:00)
[2018-08-11] MEDS: PANTOPRAZOLE (EC) 40 MG TAB PO (10:25)
[2018-08-11] MEDS: MEMANTINE 10 MG TAB PO ×2 (10:25→21:00)
[2018-08-11] MEDS: DONEPEZIL 10 MG TAB PO (10:25)
[2018-08-11] MEDS: APIXABAN 5 MG TABLET PO ×2 (10:25→21:00)
[2018-08-11] MEDS: MELOXICAM 15 MG TAB PO (10:25)
[2018-08-11] MEDS: hydrOXYzine HCL 25 MG TAB PO (10:25)
[2018-08-11] MEDS: AMIODARONE 200 MG TAB PO ×2 (10:26→21:00)
[2018-08-11] MEDS: DILTIAZEM (CD) 180 MG CAP PO ×2 (10:26→21:00)
[2018-08-11] MEDS: FUROSEMIDE 40 MG INJ IV (10:35)
[2018-08-11] MEDS ORDERED: morphine 2 MG INJ IV (13:00)
[2018-08-11] MEDS: [UNRECOGNIZED DRUG - REMARK] XX (19:30)
[2018-08-11 21:41] LABS: ADD UMIC YES; UR ASCORBIC ACID NEGATIVE (NEGATIVE); UR BILIRUBIN (Dip) NEGATIVE (NEGATIVE); UR BLOOD (Dip) NEGATIVE (NEGATIVE); UR CLARITY SLIGHTLY CLOUDY (CLEAR); UR COLOR YELLOW (YELLOW); UR GLUCOSE (Dip) NEGATIVE (NEGATIVE); UR KETONES (Dip) TRACE mg/dL (NEGATIVE); UR LEUKOCYTE ESTERASE (Dip) 1+ Leu/ul (NEGATIVE); UR NITRITE (Dip) NEGATIVE (NEGATIVE); UR RBC 1 /HPF (0-5); UR SPECIFIC GRAVITY (Dip) 1.016 (1.003-1.030); UR TOTAL PROTEIN (Dip) NEGATIVE (NEGATIVE); UR UROBILINOGEN (Dip) NEGATIVE (NEGATIVE); UR WBC 24 /HPF (0-5)
[2018-08-11 21:53] LABS: CREATININE,URINE RANDOM 120.19 mg/dl (20-320)
[2018-08-11] MEDS: SENNA/DOCUSATE NA (8.6MG/50MG) TAB PO (21:53)
[2018-08-11 21:56] LABS: SODIUM,URINE RANDOM < 13 mmol/L (30-90)
[2018-08-12] MEDS: [UNRECOGNIZED DRUG - REMARK] XX ×3 (03:30→19:30)
[2018-08-12] MEDS: METOPROLOL 50 MG TAB PO ×3 (05:36→21:32)
[2018-08-12] MEDS: APIXABAN 5 MG TABLET PO ×2 (08:27→21:32)
[2018-08-12] MEDS: THIAMINE 100 MG TAB PO (08:27)
[2018-08-12] MEDS: PANTOPRAZOLE (EC) 40 MG TAB PO (08:27)
[2018-08-12] MEDS: DONEPEZIL 10 MG TAB PO (08:28)
[2018-08-12] MEDS: MEMANTINE 10 MG TAB PO ×2 (08:28→21:32)
[2018-08-12] MEDS: BACLOFEN 10 MG TAB PO ×3 (08:28→21:32)
[2018-08-12] MEDS: DILTIAZEM (CD) 180 MG CAP PO ×2 (08:29→21:00)
[2018-08-12] MEDS: AMIODARONE 200 MG TAB PO ×2 (08:30→21:32)
[2018-08-12] MEDS: FUROSEMIDE 40 MG INJ IV (08:30)
[2018-08-12] MEDS: ARFORMOTEROL TARTRATE 15MCG/2 ML AMP INH ×2 (09:14→20:49)
[2018-08-12] MEDS: BUDESONIDE (NEB) 0.5MG/2ML AMP INH ×2 (09:15→20:49)
[2018-08-12 11:17] LABS: ADD MAN DIFF? NO
[2018-08-12 11:22] LABS: WHITE BLOOD COUNT 10.5 10^3/ul (4.8-10.8)
[2018-08-12 11:22] LABS: BASOPHILS % 0.4 % (0.0-2.0); EOSINOPHILS # 0.1 10^3/ul (0.0-0.5); EOSINOPHILS % 1.1 % (0.0-7.0); HEMATOCRIT 30.5 % (37.0-47.0); HEMOGLOBIN 9.5 g/dl (12.0-16.0); LYMPHOCYTES # 2.1 10^3/ul (0.8-2.9); MEAN CORPUSCULAR HEMOGLOBIN 26.9 pg (29.0-33.0); MEAN CORPUSCULAR HGB CONC 31.1 g/dl (32.0-37.0); MEAN CORPUSCULAR VOLUME 86.4 fl (82.0-101.0); MEAN PLATELET VOLUME 11.2 fl (7.4-10.4); MONOCYTE # 0.7 10^3/ul (0.3-0.9); MONOCYTES % 7.1 % (0.0-11.0); NEUTROPHIL # 7.4 10^3/ul (1.6-7.5); NEUTROPHILS % 70.8 % (39.0-77.0); PLATELET COUNT 223 10^3/UL (140-415); RED BLOOD COUNT 3.53 10^6/ul (4.20-5.40); RED CELL DISTRIBUTION WIDTH 14.6 % (11.5-14.5)
[2018-08-12 12:00] LABS: ANION GAP 9 (5-13); BLOOD UREA NITROGEN 50 mg/dl (7-20); CALCIUM 9.1 mg/dl (8.4-10.2); CARBON DIOXIDE 29 mmol/L (21-31); CHLORIDE 104 mmol/L (97-110); CREATININE 1.94 mg/dl (0.44-1.00); GLUCOSE 129 mg/dl (70-220); MAGNESIUM 2.3 mg/dl (1.7-2.5); PHOSPHORUS 4.4 mg/dl (2.5-4.9); POTASSIUM 3.9 mmol/L (3.5-5.1); SODIUM 142 mmol/L (135-144)
[2018-08-12 12:17] LABS: FREE T4 (FREE THYROXINE) 4.53 ng/dl (0.85-1.93)
[2018-08-12 13:20] LABS: TRIIODOTHYRONINE 1.24 ng/ml (0.97-1.69)
[2018-08-12] MEDS: DIGOXIN 500 MCG INJ IV (13:50)
[2018-08-12] MEDS: ONDANSETRON 4 MG INJ IV ×2 (14:01→22:50)
[2018-08-12] MEDS: DICLOFENAC SODIUM 1% GEL 100 GM TUBE TP ×2 (17:54→21:33)
[2018-08-12] MEDS: METHIMAZOLE 5 MG TAB PO (19:17)
[2018-08-12] MEDS: NYSTATIN 30 GM POWDER BTL TOP (21:33)
[2018-08-13] MEDS: METOCLOPRAMIDE 10 MG INJ IV ×5 (01:14→23:34)
[2018-08-13] MEDS: DIPHENHYDRAMINE 25 MG CAP PO (01:15)
[2018-08-13] MEDS ORDERED: ONDANSETRON INJ 8 MG in SOD CHLORIDE 0.9% 50 ML IV (01:30)
[2018-08-13] MEDS: HALOPERIDOL 5 MG INJ IM (01:30)
[2018-08-13] MEDS: DIPHENHYDRAMINE 50 MG INJ IV (01:30)
[2018-08-13] MEDS ORDERED: ONDANSETRON 4 MG INJ IV (01:30)
[2018-08-13] MEDS: [UNRECOGNIZED DRUG - REMARK] XX ×3 (03:30→19:30)
[2018-08-13] MEDS: METOPROLOL 50 MG TAB PO ×3 (06:16→20:45)
[2018-08-13 08:46] LABS: ALANINE AMINOTRANSFERASE 65 IU/L (13-69); ALBUMIN 3.8 g/dl (3.3-4.9); ALBUMIN/GLOBULIN RATIO 1.22; ALKALINE PHOSPHATASE 66 IU/L (42-121); ANION GAP 10 (5-13); ASPARTATE AMINO TRANSFERASE 39 IU/L (15-46); BILIRUBIN,INDIRECT 0.1 mg/dl (0-1.1); BILIRUBIN,TOTAL 0.1 mg/dl (0.2-1.3); BLOOD UREA NITROGEN 53 mg/dl (7-20); CALCIUM 9.4 mg/dl (8.4-10.2); CARBON DIOXIDE 27 mmol/L (21-31); CHLORIDE 104 mmol/L (97-110); CREATININE 1.95 mg/dl (0.44-1.00); GLUCOSE 143 mg/dl (70-220); MAGNESIUM 2.3 mg/dl (1.7-2.5); POTASSIUM 4.8 mmol/L (3.5-5.1); SODIUM 141 mmol/L (135-144); TOTAL PROTEIN 6.9 g/dl (6.1-8.1)
[2018-08-13] MEDS: MEMANTINE 10 MG TAB PO ×3 (08:47→20:46)
[2018-08-13] MEDS: METHIMAZOLE 5 MG TAB PO (08:47)
[2018-08-13] MEDS: PANTOPRAZOLE (EC) 40 MG TAB PO (08:47)
[2018-08-13] MEDS: DONEPEZIL 10 MG TAB PO ×2 (08:47→09:00)
[2018-08-13] MEDS: BACLOFEN 10 MG TAB PO ×3 (08:48→20:46)
[2018-08-13] MEDS: CYANOCOBALAMIN 500 MCG TAB PO (08:48)
[2018-08-13] MEDS: THIAMINE 100 MG TAB PO (08:48)
[2018-08-13] MEDS: FERROUS SULFATE (EC) 325 MG TAB PO (08:48)
[2018-08-13] MEDS: APIXABAN 5 MG TABLET PO ×2 (08:48→20:45)
[2018-08-13] MEDS: AMIODARONE 200 MG TAB PO ×2 (08:49→20:45)
[2018-08-13] MEDS: DILTIAZEM (CD) 180 MG CAP PO ×2 (08:50→20:44)
[2018-08-13] MEDS: FUROSEMIDE 40 MG INJ IV (08:50)
[2018-08-13 08:51] LABS: B-TYPE NATRIURETIC PEPTIDE 7340 PG/ML (0-450)
[2018-08-13] MEDS ORDERED: LORATADINE 10 MG TAB PO (09:00)
[2018-08-13] MEDS: DICLOFENAC SODIUM 1% GEL 100 GM TUBE TP ×2 (09:00→20:46)
[2018-08-13] MEDS: NYSTATIN 30 GM POWDER BTL TOP ×2 (09:00→20:46)
[2018-08-13] MEDS: BUDESONIDE (NEB) 0.5MG/2ML AMP INH ×2 (09:00→20:18)
[2018-08-13] MEDS: ARFORMOTEROL TARTRATE 15MCG/2 ML AMP INH ×2 (09:00→20:18)
[2018-08-13 09:15] LABS: DIGOXIN < 0.4 ng/ml (1.0-2.0)
[2018-08-13] MEDS: DIGOXIN 500 MCG INJ IV (13:45)
[2018-08-13] MEDS: ATORVASTATIN 40 MG TAB PO (20:46)
[2018-08-14] MEDS: MAGNESIUM HYDROXIDE 30ML CUP PO
[2018-08-14] MEDS: BISACODYL (EC) 5 MG TAB PO (02:33)
[2018-08-14] MEDS: [UNRECOGNIZED DRUG - REMARK] XX ×3 (03:30→19:30)
[2018-08-14 06:11] LABS: ADD MAN DIFF? NO
[2018-08-14 06:16] LABS: BASOPHILS % 0.4 % (0.0-2.0); EOSINOPHILS # 0.1 10^3/ul (0.0-0.5); EOSINOPHILS % 1.1 % (0.0-7.0); HEMATOCRIT 30.7 % (37.0-47.0); HEMOGLOBIN 9.6 g/dl (12.0-16.0); LYMPHOCYTES # 2.1 10^3/ul (0.8-2.9); LYMPHOCYTES % 21.8 % (15.0-51.0); MEAN CORPUSCULAR HGB CONC 31.3 g/dl (32.0-37.0); MEAN CORPUSCULAR VOLUME 86.5 fl (82.0-101.0); MEAN PLATELET VOLUME 11.4 fl (7.4-10.4); MONOCYTE # 0.9 10^3/ul (0.3-0.9); MONOCYTES % 8.8 % (0.0-11.0); NEUTROPHIL # 6.5 10^3/ul (1.6-7.5); NEUTROPHILS % 67.4 % (39.0-77.0); PLATELET COUNT 196 10^3/UL (140-415); RED BLOOD COUNT 3.55 10^6/ul (4.20-5.40); RED CELL DISTRIBUTION WIDTH 14.9 % (11.5-14.5)
[2018-08-14 06:16] LABS: WHITE BLOOD COUNT 9.7 10^3/ul (4.8-10.8)
[2018-08-14] MEDS: PANTOPRAZOLE (EC) 40 MG TAB PO (06:36)
[2018-08-14] MEDS: METOPROLOL 50 MG TAB PO ×2 (06:36→15:30)
[2018-08-14 06:44] LABS: MAGNESIUM 2.3 mg/dl (1.7-2.5)
[2018-08-14 06:52] LABS: LIPASE 240 U/L (23-300)
[2018-08-14 06:54] LABS: DIGOXIN 0.6 ng/ml (1.0-2.0)
[2018-08-14 06:56] LABS: ALANINE AMINOTRANSFERASE 59 IU/L (13-69); ALBUMIN 3.6 g/dl (3.3-4.9); ALBUMIN/GLOBULIN RATIO 1.16; ALKALINE PHOSPHATASE 71 IU/L (42-121); ANION GAP 7 (5-13); ASPARTATE AMINO TRANSFERASE 34 IU/L (15-46); BILIRUBIN,INDIRECT 0.1 mg/dl (0-1.1); BILIRUBIN,TOTAL 0.1 mg/dl (0.2-1.3); BLOOD UREA NITROGEN 47 mg/dl (7-20); CALCIUM 9.1 mg/dl (8.4-10.2); CARBON DIOXIDE 30 mmol/L (21-31); CHLORIDE 106 mmol/L (97-110); CREATININE 1.95 mg/dl (0.44-1.00); GLUCOSE 107 mg/dl (70-220); POTASSIUM 4.6 mmol/L (3.5-5.1); SODIUM 143 mmol/L (135-144); TOTAL PROTEIN 6.7 g/dl (6.1-8.1)
[2018-08-14] MEDS: METHIMAZOLE 5 MG TAB PO (08:59)
[2018-08-14] MEDS: CYANOCOBALAMIN 500 MCG TAB PO (09:00)
[2018-08-14] MEDS: MEMANTINE 10 MG TAB PO ×2 (09:00→21:00)
[2018-08-14] MEDS: BACLOFEN 10 MG TAB PO ×3 (09:00→21:00)
[2018-08-14] MEDS: THIAMINE 100 MG TAB PO (09:00)
[2018-08-14] MEDS: APIXABAN 5 MG TABLET PO ×3 (09:00→23:09)
[2018-08-14] MEDS: DONEPEZIL 10 MG TAB PO (09:11)
[2018-08-14] MEDS: DILTIAZEM (CD) 180 MG CAP PO (09:11)
[2018-08-14] MEDS: AMIODARONE 200 MG TAB PO ×3 (09:11→23:10)
[2018-08-14] MEDS: DICLOFENAC SODIUM 1% GEL 100 GM TUBE TP ×2 (09:12→21:50)
[2018-08-14] MEDS: NYSTATIN 30 GM POWDER BTL TOP ×2 (09:13→21:50)
[2018-08-14] MEDS: BUMETANIDE 1 MG TAB PO (09:17)
[2018-08-14] MEDS: ARFORMOTEROL TARTRATE 15MCG/2 ML AMP INH ×2 (09:52→19:52)
[2018-08-14] MEDS: BUDESONIDE (NEB) 0.5MG/2ML AMP INH ×4 (09:52→20:05)
[2018-08-14 12:36] LABS: DIGOXIN 0.4 ng/ml (1.0-2.0)
[2018-08-14 14:56] LABS: CREATININE, RANDOM URINE 105 mg/dL (20-275); MICROALBUMIN 2.9 mg/dL; MICROALBUMIN/CREATININE RATIO 28 (<30)
[2018-08-14 15:47] LABS: THYROID MICROSOMAL ANTIBODY 1 IU/mL (<9)
[2018-08-14] MEDS: DILTIAZEM (CD) 120 MG CAP PO (21:00)
[2018-08-14] MEDS: ATORVASTATIN 40 MG TAB PO (21:00)
[2018-08-14] MEDS: SENNA/DOCUSATE NA (8.6MG/50MG) TAB PO (21:00)
[2018-08-14] MEDS: METOPROLOL 100 MG TAB PO ×2 (21:00→23:10)
[2018-08-15] MEDS ORDERED: DIPHENHYDRAMINE 50 MG INJ (01:13)
[2018-08-15] MEDS: DIPHENHYDRAMINE 50 MG INJ IV (01:19)
[2018-08-15] MEDS: [UNRECOGNIZED DRUG - REMARK] XX ×3 (03:30→19:30)
[2018-08-15 05:40] LABS: ADD MAN DIFF? NO
[2018-08-15 05:57] LABS: WHITE BLOOD COUNT 9.6 10^3/ul (4.8-10.8)
[2018-08-15 05:57] LABS: BASOPHILS % 0.4 % (0.0-2.0); EOSINOPHILS # 0.1 10^3/ul (0.0-0.5); EOSINOPHILS % 1.3 % (0.0-7.0); HEMOGLOBIN 9.6 g/dl (12.0-16.0); LYMPHOCYTES % 20.8 % (15.0-51.0); MEAN CORPUSCULAR HEMOGLOBIN 27.2 pg (29.0-33.0); MEAN CORPUSCULAR VOLUME 87.8 fl (82.0-101.0); MEAN PLATELET VOLUME 11.3 fl (7.4-10.4); MONOCYTE # 0.8 10^3/ul (0.3-0.9); NEUTROPHIL # 6.7 10^3/ul (1.6-7.5); NEUTROPHILS % 69.2 % (39.0-77.0); PLATELET COUNT 213 10^3/UL (140-415); RED BLOOD COUNT 3.53 10^6/ul (4.20-5.40); RED CELL DISTRIBUTION WIDTH 15.3 % (11.5-14.5)
[2018-08-15 06:30] LABS: ANION GAP 8 (5-13); BLOOD UREA NITROGEN 44 mg/dl (7-20); CALCIUM 9.1 mg/dl (8.4-10.2); CARBON DIOXIDE 29 mmol/L (21-31); CHLORIDE 105 mmol/L (97-110); CREATININE 1.76 mg/dl (0.44-1.00); GLUCOSE 106 mg/dl (70-220); MAGNESIUM 2.2 mg/dl (1.7-2.5); POTASSIUM 4.1 mmol/L (3.5-5.1); SODIUM 142 mmol/L (135-144)
[2018-08-15] MEDS: CYANOCOBALAMIN 500 MCG TAB PO (08:17)
[2018-08-15] MEDS: BUMETANIDE 1 MG TAB PO ×3 (08:17→21:21)
[2018-08-15] MEDS: METHIMAZOLE 5 MG TAB PO (08:18)
[2018-08-15] MEDS: PANTOPRAZOLE (EC) 40 MG TAB PO (08:18)
[2018-08-15] MEDS: THIAMINE 100 MG TAB PO (08:18)
[2018-08-15] MEDS: APIXABAN 5 MG TABLET PO ×2 (08:21→21:32)
[2018-08-15] MEDS: DONEPEZIL 10 MG TAB PO (08:22)
[2018-08-15] MEDS: DILTIAZEM (CD) 120 MG CAP PO ×2 (08:22→21:33)
[2018-08-15] MEDS: AMIODARONE 200 MG TAB PO ×2 (08:22→21:32)
[2018-08-15] MEDS: BACLOFEN 10 MG TAB PO ×3 (08:22→21:00)
[2018-08-15] MEDS: METOPROLOL 100 MG TAB PO ×2 (08:22→21:32)
[2018-08-15] MEDS: MEMANTINE 10 MG TAB PO ×2 (08:27→21:22)
[2018-08-15] MEDS: NYSTATIN 30 GM POWDER BTL TOP ×2 (08:28→21:38)
[2018-08-15] MEDS: DICLOFENAC SODIUM 1% GEL 100 GM TUBE TP ×2 (08:29→21:34)
[2018-08-15] MEDS: ARFORMOTEROL TARTRATE 15MCG/2 ML AMP INH ×2 (09:44→20:30)
[2018-08-15] MEDS: BUDESONIDE (NEB) 0.5MG/2ML AMP INH (09:45)
[2018-08-15] MEDS: ONDANSETRON 4 MG INJ IV (13:18)
[2018-08-15] MEDS: ATORVASTATIN 40 MG TAB PO (21:22)
[2018-08-15] MEDS: ZOLPIDEM 5 MG TAB PO (21:33)
[2018-08-16] MEDS: [UNRECOGNIZED DRUG - REMARK] XX ×3 (03:30→19:30)
[2018-08-16] MEDS: PANTOPRAZOLE (EC) 40 MG TAB PO (06:09)
[2018-08-16] MEDS: BACLOFEN 10 MG TAB PO ×3 (09:00→20:37)
[2018-08-16] MEDS: DONEPEZIL 10 MG TAB PO (09:00)
[2018-08-16] MEDS: FERROUS SULFATE (EC) 325 MG TAB PO (09:00)
[2018-08-16] MEDS: MEMANTINE 10 MG TAB PO ×2 (09:00→20:37)
[2018-08-16] MEDS: BUMETANIDE 1 MG TAB PO ×2 (09:38→20:32)
[2018-08-16] MEDS: DILTIAZEM (CD) 120 MG CAP PO ×2 (09:39→20:34)
[2018-08-16] MEDS: AMIODARONE 200 MG TAB PO ×2 (09:39→20:33)
[2018-08-16] MEDS: CYANOCOBALAMIN 500 MCG TAB PO (09:39)
[2018-08-16] MEDS: APIXABAN 5 MG TABLET PO ×2 (09:39→20:34)
[2018-08-16] MEDS: METHIMAZOLE 5 MG TAB PO (09:40)
[2018-08-16] MEDS: THIAMINE 100 MG TAB PO (09:40)
[2018-08-16] MEDS: METOPROLOL 100 MG TAB PO ×2 (09:40→20:33)
[2018-08-16] MEDS: LISINOPRIL 5 MG TAB PO (09:44)
[2018-08-16] MEDS: BUDESONIDE (NEB) 0.5MG/2ML AMP INH ×2 (09:56→20:56)
[2018-08-16] MEDS: ARFORMOTEROL TARTRATE 15MCG/2 ML AMP INH ×2 (09:56→20:56)
[2018-08-16] MEDS: DICLOFENAC SODIUM 1% GEL 100 GM TUBE TP ×2 (09:58→21:00)
[2018-08-16] MEDS: NYSTATIN 30 GM POWDER BTL TOP ×2 (09:58→21:00)
[2018-08-16 10:53] LABS: ADD MAN DIFF? NO
[2018-08-16 10:54] LABS: BASOPHILS % 0.3 % (0.0-2.0); EOSINOPHILS # 0.2 10^3/ul (0.0-0.5); EOSINOPHILS % 1.2 % (0.0-7.0); HEMATOCRIT 32.9 % (37.0-47.0); HEMOGLOBIN 10.3 g/dl (12.0-16.0); LYMPHOCYTES % 16.8 % (15.0-51.0); MEAN CORPUSCULAR HEMOGLOBIN 27.5 pg (29.0-33.0); MEAN CORPUSCULAR HGB CONC 31.3 g/dl (32.0-37.0); MEAN PLATELET VOLUME 11.6 fl (7.4-10.4); MONOCYTE # 0.7 10^3/ul (0.3-0.9); MONOCYTES % 5.8 % (0.0-11.0); NEUTROPHIL # 9.1 10^3/ul (1.6-7.5); NEUTROPHILS % 75.4 % (39.0-77.0); PLATELET COUNT 227 10^3/UL (140-415); RED BLOOD COUNT 3.74 10^6/ul (4.20-5.40); RED CELL DISTRIBUTION WIDTH 15.5 % (11.5-14.5)
[2018-08-16 11:14] LABS: ANION GAP 9 (5-13); BLOOD UREA NITROGEN 38 mg/dl (7-20); CALCIUM 9.4 mg/dl (8.4-10.2); CARBON DIOXIDE 30 mmol/L (21-31); CHLORIDE 104 mmol/L (97-110); CREATININE 1.64 mg/dl (0.44-1.00); GLUCOSE 111 mg/dl (70-220); MAGNESIUM 2.2 mg/dl (1.7-2.5); PHOSPHORUS 4.2 mg/dl (2.5-4.9); POTASSIUM 3.9 mmol/L (3.5-5.1); SODIUM 143 mmol/L (135-144)
[2018-08-16 11:36] LABS: DIGOXIN < 0.4 ng/ml (1.0-2.0)
[2018-08-16] MEDS: ATORVASTATIN 40 MG TAB PO (20:37)
[2018-08-16] MEDS: SENNA/DOCUSATE NA (8.6MG/50MG) TAB PO (20:37)
[2018-08-16] MEDS: ZOLPIDEM 5 MG TAB PO (22:04)
[2018-08-17] MEDS: [UNRECOGNIZED DRUG - REMARK] XX ×3 (03:30→17:08)
[2018-08-17] MEDS: PANTOPRAZOLE (EC) 40 MG TAB PO (06:29)
[2018-08-17] MEDS: LISINOPRIL 5 MG TAB PO (09:00)
[2018-08-17] MEDS: BUDESONIDE (NEB) 0.5MG/2ML AMP INH (09:00)
[2018-08-17] MEDS: DONEPEZIL 10 MG TAB PO (09:00)
[2018-08-17] MEDS: BACLOFEN 10 MG TAB PO ×2 (09:00→12:57)
[2018-08-17] MEDS: MEMANTINE 10 MG TAB PO (09:00)
[2018-08-17] MEDS: ARFORMOTEROL TARTRATE 15MCG/2 ML AMP INH (09:00)
[2018-08-17] MEDS: DILTIAZEM (CD) 120 MG CAP PO (09:00)
[2018-08-17] MEDS: AMIODARONE 200 MG TAB PO (09:36)
[2018-08-17] MEDS: METHIMAZOLE 5 MG TAB PO (09:36)
[2018-08-17] MEDS: FERROUS SULFATE (EC) 325 MG TAB PO (09:37)
[2018-08-17] MEDS: THIAMINE 100 MG TAB PO (09:37)
[2018-08-17] MEDS: BUMETANIDE 1 MG TAB PO (09:37)
[2018-08-17] MEDS: APIXABAN 5 MG TABLET PO (09:38)
[2018-08-17] MEDS: CYANOCOBALAMIN 500 MCG TAB PO (09:38)
[2018-08-17] MEDS: METOPROLOL 100 MG TAB PO (09:43)
[2018-08-17] MEDS: NYSTATIN 30 GM POWDER BTL TOP (09:53)
[2018-08-17] MEDS: DICLOFENAC SODIUM 1% GEL 100 GM TUBE TP (09:53)
[2018-08-17 10:54] LABS: ANION GAP 9 (5-13); BLOOD UREA NITROGEN 39 mg/dl (7-20); CALCIUM 9.3 mg/dl (8.4-10.2); CARBON DIOXIDE 31 mmol/L (21-31); CHLORIDE 102 mmol/L (97-110); GLUCOSE 136 mg/dl (70-220); PHOSPHORUS 4.5 mg/dl (2.5-4.9); POTASSIUM 4.1 mmol/L (3.5-5.1); SODIUM 142 mmol/L (135-144)
[2018-08-17] MEDS ORDERED: DILTIAZEM (CD) 180 MG CAP PO (21:00)
== END 2018-08-17 20:35 | disposition home or self-care (01) | DRG 291 ==
LOC: E/R 19:51 → TEL 22:03
DX: I13.0 Hypertensive heart and chronic kidney disease with heart failure and stage 1 through stage 4 chronic kidney disease, or unspecified chronic kidney disease (principal); I50.33 Acute on chronic diastolic (congestive) heart failure; J96.01 Acute respiratory failure with hypoxia; N17.9 Acute kidney failure, unspecified; I07.1 Rheumatic tricuspid insufficiency; I48.2 Chronic atrial fibrillation; R06.00 Dyspnea, unspecified; N18.9 Chronic kidney disease, unspecified; D50.9 Iron deficiency anemia, unspecified; E66.9 Obesity, unspecified; Z68.34 Body mass index [BMI] 34.0-34.9, adult; E78.00 Pure hypercholesterolemia, unspecified; E78.5 Hyperlipidemia, unspecified; K44.9 Diaphragmatic hernia without obstruction or gangrene; E05.90 Thyrotoxicosis, unspecified without thyrotoxic crisis or storm; G47.33 Obstructive sleep apnea (adult) (pediatric); Z91.14 Patient's other noncompliance with medication regimen
CPT/HCPCS: 36415; 71045; 74018; 80048; 80053; 80162; 81001; 81003; 82043; 82550; 82553; 82962; 83036; 83605; 83690; 83735; 83880; 84100; 84155; 84300; 84439; 84443; 84480; 84484; 85025; 85610; 86376; 86800; 93005; 93306; 93971; 94640; 94664; 97110; 97116; 97161; 97530; 99285-25

== ENCOUNTER 2018-09-08 10:58 | Inpatient (IN) | payer MEDICARE, OTHER ==
[2018-09-08 11:38] LABS: ADD MAN DIFF? NO
[2018-09-08 11:39] LABS: WHITE BLOOD COUNT 11.1 10^3/ul (4.8-10.8)
[2018-09-08 11:39] LABS: BASOPHIL # 0.1 10^3/ul (0.0-0.1); BASOPHILS % 0.5 % (0.0-2.0); EOSINOPHILS # 0.2 10^3/ul (0.0-0.5); EOSINOPHILS % 1.5 % (0.0-7.0); HEMATOCRIT 36.4 % (37.0-47.0); HEMOGLOBIN 11.3 g/dl (12.0-16.0); LYMPHOCYTES # 2.6 10^3/ul (0.8-2.9); LYMPHOCYTES % 23.3 % (15.0-51.0); MEAN CORPUSCULAR VOLUME 87.1 fl (82.0-101.0); MEAN PLATELET VOLUME 10.6 fl (7.4-10.4); MONOCYTES % 9.4 % (0.0-11.0); NEUTROPHIL # 7.2 10^3/ul (1.6-7.5); PLATELET COUNT 237 10^3/UL (140-415); RED BLOOD COUNT 4.18 10^6/ul (4.20-5.40); RED CELL DISTRIBUTION WIDTH 15.9 % (11.5-14.5)
[2018-09-08] MEDS: FUROSEMIDE 40 MG INJ IV (11:39)
[2018-09-08] MEDS: DILTIAZEM 25 MG INJ IV ×2 (11:43→23:40)
[2018-09-08 11:56] LABS: ALANINE AMINOTRANSFERASE 25 IU/L (13-69); ALBUMIN 3.7 g/dl (3.3-4.9); ALBUMIN/GLOBULIN RATIO 1.02; ALKALINE PHOSPHATASE 71 IU/L (42-121); ANION GAP 14 (5-13); ASPARTATE AMINO TRANSFERASE 22 IU/L (15-46); BILIRUBIN,INDIRECT 0.6 mg/dl (0-1.1); BILIRUBIN,TOTAL 0.6 mg/dl (0.2-1.3); BLOOD UREA NITROGEN 38 mg/dl (7-20); CALCIUM 9.3 mg/dl (8.4-10.2); CARBON DIOXIDE 23 mmol/L (21-31); CHLORIDE 103 mmol/L (97-110); CREATININE 1.98 mg/dl (0.44-1.00); GLUCOSE 114 mg/dl (70-220); POTASSIUM 5.1 mmol/L (3.5-5.1); SODIUM 140 mmol/L (135-144); TOTAL PROTEIN 7.3 g/dl (6.1-8.1)
[2018-09-08 12:47] LABS: PARTIAL THROMBOPLASTIN TIME 29.9 Sec (23.0-35.0); PROTIME 17.3 Sec (11.9-14.9); PT RATIO 1.4
[2018-09-08 13:03] LABS: B-TYPE NATRIURETIC PEPTIDE 12000 PG/ML (0-450); TROPONIN-I < 0.012 ng/ml (0.000-0.120)
[2018-09-08] MEDS ORDERED: ERGOCALCIFEROL 50,000 UNIT CAP PO (14:30)
[2018-09-08] MEDS ORDERED: DOCUSATE SODIUM 100 MG CAP PO (14:30)
[2018-09-08] MEDS ORDERED: ACETAMINOPHEN 325 MG TAB PO (14:30)
[2018-09-08] MEDS ORDERED: LORAZEPAM 0.5 MG TAB PO (14:30)
[2018-09-08] MEDS ORDERED: NACL 0.9% 3 ML SYG IV (14:30)
[2018-09-08 15:02] LABS: FREE T3 8.15 pg/ml (2.77-5.27)
[2018-09-08 15:03] LABS: FREE T4 (FREE THYROXINE) 5.85 ng/dl (0.85-1.93)
[2018-09-08] MEDS: ONDANSETRON 4 MG INJ IV ×2 (15:05→21:29)
[2018-09-08] MEDS: METOPROLOL 25 MG TAB PO ×2 (15:07→21:00)
[2018-09-08 15:18] LABS: THYROID STIMULATING HORMONE < 0.015 MIU/L (0.465-4.680)
[2018-09-08] MEDS: NYSTATIN 15 GM CR TOP ×2 (16:00→22:36)
[2018-09-08 17:47] LABS: CREATINE KINASE 56 IU/L (23-200)
[2018-09-08 17:57] LABS: CK INDEX 2.3; CK-MB 1.27 ng/ml (0.0-2.4); TROPONIN-I < 0.012 ng/ml (0.000-0.120)
[2018-09-08] MEDS: BUMETANIDE 3 MG in DEXTROSE 5% 18 ML IV (18:03)
[2018-09-08] MEDS: ATORVASTATIN 40 MG TAB PO (20:56)
[2018-09-08] MEDS: traZODone 50 MG TAB PO ×2 (20:56→23:20)
[2018-09-08] MEDS: APIXABAN 5 MG TABLET PO (20:56)
[2018-09-08] MEDS: METOLAZONE 5 MG TAB PO (20:57)
[2018-09-08] MEDS ORDERED: AMIODARONE 200 MG TAB PO (21:00)
[2018-09-08] MEDS ORDERED: NON-FORMULARY/PATIENT OWN MED (Budesonide-Formoterol Fumarate* (Symbicort*) 2 PUFF) XX (21:00)
[2018-09-08 23:20] LABS: ADD UMIC YES; UR ASCORBIC ACID NEGATIVE (NEGATIVE); UR BILIRUBIN (Dip) NEGATIVE (NEGATIVE); UR BLOOD (Dip) 3+ mg/dL (NEGATIVE); UR CLARITY SLIGHTLY CLOUDY (CLEAR); UR COLOR RED (YELLOW); UR GLUCOSE (Dip) NEGATIVE (NEGATIVE); UR KETONES (Dip) NEGATIVE (NEGATIVE); UR LEUKOCYTE ESTERASE (Dip) TRACE Leu/ul (NEGATIVE); UR NITRITE (Dip) NEGATIVE (NEGATIVE); UR RBC > 182 /HPF (0-5); UR SPECIFIC GRAVITY (Dip) 1.009 (1.003-1.030); UR SQUAMOUS EPITHELIAL CELL FEW /HPF (FEW); UR TOTAL PROTEIN (Dip) 1+ mg/dl (NEGATIVE); UR UROBILINOGEN (Dip) NEGATIVE (NEGATIVE); UR WBC 6 /HPF (0-5)
[2018-09-08 23:23] LABS: CREATININE,URINE RANDOM 37.06 mg/dl (20-320)
[2018-09-08 23:23] LABS: SODIUM,URINE RANDOM 81 mmol/L (30-90)
[2018-09-08 23:29] LABS: CREATINE KINASE 52 IU/L (23-200)
[2018-09-08 23:41] LABS: CK INDEX 2.3; CK-MB 1.17 ng/ml (0.0-2.4); TROPONIN-I < 0.012 ng/ml (0.000-0.120)
[2018-09-09] MEDS ORDERED: LEVALBUTEROL (NEB) 0.63 MG/3 ML AMP HHN (04:30)
[2018-09-09] MEDS: METOPROLOL 25 MG TAB PO (06:08)
[2018-09-09 06:09] LABS: ADD MAN DIFF? NO; BASOPHILS % 0.5 % (0.0-2.0); EOSINOPHILS # 0.2 10^3/ul (0.0-0.5); EOSINOPHILS % 2.4 % (0.0-7.0); HEMATOCRIT 34.4 % (37.0-47.0); HEMOGLOBIN 10.5 g/dl (12.0-16.0); LYMPHOCYTES # 1.3 10^3/ul (0.8-2.9); LYMPHOCYTES % 15.9 % (15.0-51.0); MEAN CORPUSCULAR HEMOGLOBIN 26.7 pg (29.0-33.0); MEAN CORPUSCULAR HGB CONC 30.5 g/dl (32.0-37.0); MEAN CORPUSCULAR VOLUME 87.5 fl (82.0-101.0); MEAN PLATELET VOLUME 11.1 fl (7.4-10.4); MONOCYTE # 0.7 10^3/ul (0.3-0.9); MONOCYTES % 8.8 % (0.0-11.0); NEUTROPHIL # 5.7 10^3/ul (1.6-7.5); PLATELET COUNT 223 10^3/UL (140-415); RED BLOOD COUNT 3.93 10^6/ul (4.20-5.40); RED CELL DISTRIBUTION WIDTH 15.8 % (11.5-14.5)
[2018-09-09 06:09] LABS: WHITE BLOOD COUNT 7.9 10^3/ul (4.8-10.8)
[2018-09-09] MEDS: BUMETANIDE 1 MG INJ IV (06:12)
[2018-09-09] MEDS: DILTIAZEM (CD) 120 MG CAP PO ×3 (06:31→09:20)
[2018-09-09] MEDS: METOPROLOL 5 MG INJ IV (06:34)
[2018-09-09 07:00] LABS: ALANINE AMINOTRANSFERASE 23 IU/L (13-69); ALBUMIN 3.5 g/dl (3.3-4.9); ALBUMIN/GLOBULIN RATIO 1.12; ALKALINE PHOSPHATASE 63 IU/L (42-121); ANION GAP 8 (5-13); ASPARTATE AMINO TRANSFERASE 23 IU/L (15-46); BILIRUBIN,INDIRECT 0.6 mg/dl (0-1.1); BILIRUBIN,TOTAL 0.6 mg/dl (0.2-1.3); BLOOD UREA NITROGEN 38 mg/dl (7-20); CALCIUM 9.3 mg/dl (8.4-10.2); CARBON DIOXIDE 26 mmol/L (21-31); CHLORIDE 105 mmol/L (97-110); CHOL/HDL RATIO 3.6 RATIO; CHOLESTEROL 99 mg/dl (100-200); CREATININE 1.93 mg/dl (0.44-1.00); GLUCOSE 118 mg/dl (70-220); HDL CHOLESTEROL 27 mg/dl (33-92); LDL CHOLESTEROL,CALCULATED 54 mg/dl; PHOSPHORUS 4.1 mg/dl (2.5-4.9); POTASSIUM 4.5 mmol/L (3.5-5.1); SODIUM 139 mmol/L (135-144); TOTAL PROTEIN 6.6 g/dl (6.1-8.1); TRIGLYCERIDES 89 mg/dl (0-149)
[2018-09-09] MEDS: PANTOPRAZOLE (EC) 40 MG TAB PO (07:34)
[2018-09-09] MEDS: NYSTATIN 15 GM CR TOP ×2 (08:20→21:40)
[2018-09-09] MEDS: LORATADINE 10 MG TAB PO ×2 (08:21→09:00)
[2018-09-09] MEDS: METHIMAZOLE 5 MG TAB PO ×3 (08:21→21:40)
[2018-09-09] MEDS: FERROUS SULFATE (EC) 325 MG TAB PO ×2 (08:21→09:00)
[2018-09-09] MEDS: APIXABAN 5 MG TABLET PO ×2 (08:21→21:40)
[2018-09-09 08:34] LABS: HEMOGLOBIN A1C 5.6 % (0-5.9)
[2018-09-09] MEDS: ONDANSETRON 4 MG INJ IV (08:57)
[2018-09-09] MEDS ORDERED: NON-FORMULARY/PATIENT OWN MED (Memantine HCl/Donepezil HCl (Namzaric 28 mg-10 mg Capsule) PO (09:00)
[2018-09-09] MEDS ORDERED: METHIMAZOLE 5 MG TAB PO (09:00)
[2018-09-09 10:13] LABS: IRON 44 ug/dl (35-150)
[2018-09-09 10:22] LABS: % IRON SATURATION 15 % SAT (22-52); TOTAL IRON BINDING CAPACITY 298 ug/dl (241-421)
[2018-09-09 10:46] LABS: FERRITIN 53.9 ng/ml (11.1-264.0)
[2018-09-09] MEDS: METOLAZONE 10 MG TAB PO (12:40)
[2018-09-09 13:56] LABS: HEPATITIS B SURFACE ANTIGEN NEGATIVE (NEGATIVE)
[2018-09-09] MEDS: METOPROLOL 100 MG TAB PO ×2 (14:03→21:41)
[2018-09-09 14:13] LABS: HEPATITIS C VIRAL ANTIBODY NEGATIVE (NEGATIVE)
[2018-09-09 14:14] LABS: HEPATITIS B SURFACE ANTIBODY NEGATIVE (NEGATIVE)
[2018-09-09] MEDS: CEFTRIAXONE 1 GM/50 ML (PMX) 50 ML IVPB (15:06)
[2018-09-09] MEDS ORDERED: BUMETANIDE 1 MG INJ IV (21:00)
[2018-09-09] MEDS: ATORVASTATIN 40 MG TAB PO ×2 (21:00→21:40)
[2018-09-09] MEDS: BUMETANIDE 2 MG in DEXTROSE 5% 17 ML IV (21:39)
[2018-09-09] MEDS: traZODone 50 MG TAB PO (21:40)
[2018-09-09] MEDS: AMIODARONE 200 MG TAB PO (21:41)
[2018-09-10 06:24] LABS: ADD MAN DIFF? NO
[2018-09-10 06:37] LABS: BASOPHILS % 0.4 % (0.0-2.0); EOSINOPHILS # 0.2 10^3/ul (0.0-0.5); EOSINOPHILS % 2.1 % (0.0-7.0); HEMATOCRIT 34.9 % (37.0-47.0); HEMOGLOBIN 10.7 g/dl (12.0-16.0); LYMPHOCYTES # 1.3 10^3/ul (0.8-2.9); LYMPHOCYTES % 16.6 % (15.0-51.0); MEAN CORPUSCULAR HEMOGLOBIN 26.6 pg (29.0-33.0); MEAN CORPUSCULAR HGB CONC 30.7 g/dl (32.0-37.0); MEAN CORPUSCULAR VOLUME 86.8 fl (82.0-101.0); MONOCYTE # 0.6 10^3/ul (0.3-0.9); MONOCYTES % 7.9 % (0.0-11.0); NEUTROPHIL # 5.8 10^3/ul (1.6-7.5); NEUTROPHILS % 72.6 % (39.0-77.0); PLATELET COUNT 224 10^3/UL (140-415); RED BLOOD COUNT 4.02 10^6/ul (4.20-5.40); RED CELL DISTRIBUTION WIDTH 15.9 % (11.5-14.5)
[2018-09-10] MEDS: PANTOPRAZOLE (EC) 40 MG TAB PO (06:54)
[2018-09-10] MEDS: METOPROLOL 100 MG TAB PO ×2 (06:55→20:44)
[2018-09-10 07:16] LABS: ANION GAP 10 (5-13); BLOOD UREA NITROGEN 42 mg/dl (7-20); CALCIUM 9.2 mg/dl (8.4-10.2); CARBON DIOXIDE 29 mmol/L (21-31); CHLORIDE 100 mmol/L (97-110); CREATININE 2.17 mg/dl (0.44-1.00); GLUCOSE 157 mg/dl (70-220); MAGNESIUM 1.9 mg/dl (1.7-2.5); PHOSPHORUS 4.3 mg/dl (2.5-4.9); POTASSIUM 4.4 mmol/L (3.5-5.1); SODIUM 139 mmol/L (135-144)
[2018-09-10] MEDS ORDERED: DILTIAZEM (CD) 120 MG CAP PO (09:00)
[2018-09-10] MEDS: FERROUS SULFATE (EC) 325 MG TAB PO (09:00)
[2018-09-10] MEDS: BUMETANIDE 2 MG in DEXTROSE 5% 17 ML IV ×2 (09:13→20:43)
[2018-09-10] MEDS: NYSTATIN 15 GM CR TOP ×2 (09:15→20:45)
[2018-09-10] MEDS: METHIMAZOLE 5 MG TAB PO ×2 (09:17→20:43)
[2018-09-10] MEDS: AMIODARONE 200 MG TAB PO (09:17)
[2018-09-10] MEDS: LORATADINE 10 MG TAB PO (09:17)
[2018-09-10] MEDS: APIXABAN 5 MG TABLET PO ×2 (09:17→20:43)
[2018-09-10] MEDS: DILTIAZEM (CD) 180 MG CAP PO (10:46)
[2018-09-10] MEDS: CEFTRIAXONE 1 GM/50 ML (PMX) 50 ML IVPB (14:24)
[2018-09-10] MEDS: traZODone 50 MG TAB PO (20:43)
[2018-09-10] MEDS: ATORVASTATIN 40 MG TAB PO (20:44)
[2018-09-11] MEDS: PANTOPRAZOLE (EC) 40 MG TAB PO (07:18)
[2018-09-11] MEDS: APIXABAN 5 MG TABLET PO ×2 (08:20→20:50)
[2018-09-11] MEDS: LORATADINE 10 MG TAB PO (08:21)
[2018-09-11] MEDS: BUMETANIDE 2 MG in DEXTROSE 5% 17 ML IV ×2 (08:21→20:49)
[2018-09-11] MEDS: METOPROLOL 100 MG TAB PO ×2 (08:22→20:50)
[2018-09-11] MEDS: METHIMAZOLE 5 MG TAB PO ×2 (08:22→20:49)
[2018-09-11] MEDS: DILTIAZEM (CD) 180 MG CAP PO (08:23)
[2018-09-11] MEDS: NYSTATIN 15 GM CR TOP ×2 (08:23→20:51)
[2018-09-11] MEDS: AMIODARONE 200 MG TAB PO (08:23)
[2018-09-11] MEDS: FERROUS SULFATE (EC) 325 MG TAB PO (08:27)
[2018-09-11 10:47] LABS: ALANINE AMINOTRANSFERASE 22 IU/L (13-69); ALBUMIN 3.4 g/dl (3.3-4.9); ALBUMIN/GLOBULIN RATIO 0.97; ALKALINE PHOSPHATASE 58 IU/L (42-121); ANION GAP 11 (5-13); ASPARTATE AMINO TRANSFERASE 19 IU/L (15-46); BILIRUBIN,INDIRECT 0.4 mg/dl (0-1.1); BILIRUBIN,TOTAL 0.4 mg/dl (0.2-1.3); BLOOD UREA NITROGEN 45 mg/dl (7-20); CALCIUM 8.8 mg/dl (8.4-10.2); CARBON DIOXIDE 28 mmol/L (21-31); CHLORIDE 100 mmol/L (97-110); CREATININE 2.14 mg/dl (0.44-1.00); GLUCOSE 167 mg/dl (70-220); MAGNESIUM 1.8 mg/dl (1.7-2.5); PHOSPHORUS 4.4 mg/dl (2.5-4.9); POTASSIUM 3.3 mmol/L (3.5-5.1); SODIUM 139 mmol/L (135-144); TOTAL PROTEIN 6.9 g/dl (6.1-8.1)
[2018-09-11] MEDS: predniSONE 20 MG TAB PO (13:26)
[2018-09-11] MEDS: POLYETHYLENE GLYCOL 17 GM PACKET PO (13:26)
[2018-09-11] MEDS: CEFTRIAXONE 1 GM/50 ML (PMX) 50 ML IVPB (13:40)
[2018-09-11] MEDS: ONDANSETRON 4 MG INJ IV (13:40)
[2018-09-11] MEDS: POTASSIUM CHLORIDE (SR) 20 MEQ TAB PO (14:00)
[2018-09-11 14:57] LABS: CREATININE, RANDOM URINE 28 mg/dL (20-275); MICROALBUMIN 10.3 mg/dL; MICROALBUMIN/CREATININE RATIO 368 (<30)
[2018-09-11] MEDS: ATORVASTATIN 40 MG TAB PO (20:49)
[2018-09-11] MEDS: traZODone 50 MG TAB PO (20:50)
[2018-09-12 06:53] LABS: ANION GAP 11 (5-13); BLOOD UREA NITROGEN 53 mg/dl (7-20); CALCIUM 9.1 mg/dl (8.4-10.2); CARBON DIOXIDE 32 mmol/L (21-31); CHLORIDE 98 mmol/L (97-110); CREATININE 2.25 mg/dl (0.44-1.00); GLUCOSE 134 mg/dl (70-220); MAGNESIUM 1.9 mg/dl (1.7-2.5); PHOSPHORUS 5.3 mg/dl (2.5-4.9); POTASSIUM 3.8 mmol/L (3.5-5.1); SODIUM 141 mmol/L (135-144)
[2018-09-12 07:15] LABS: FREE T4 (FREE THYROXINE) 5.04 ng/dl (0.85-1.93)
[2018-09-12 07:44] LABS: ERYTHROCYTE SEDIMENTATION RATE 13 mm/Hr (0-30)
[2018-09-12] MEDS: BUMETANIDE 2 MG in DEXTROSE 5% 17 ML IV ×2 (08:46→20:40)
[2018-09-12] MEDS: APIXABAN 5 MG TABLET PO ×2 (08:47→20:40)
[2018-09-12] MEDS: METHIMAZOLE 5 MG TAB PO ×2 (08:47→20:41)
[2018-09-12] MEDS: LORATADINE 10 MG TAB PO (08:47)
[2018-09-12] MEDS: predniSONE 20 MG TAB PO (08:47)
[2018-09-12] MEDS: PANTOPRAZOLE (EC) 40 MG TAB PO (08:47)
[2018-09-12] MEDS: METOPROLOL 100 MG TAB PO ×2 (08:48→20:42)
[2018-09-12] MEDS: AMIODARONE 200 MG TAB PO (08:48)
[2018-09-12] MEDS: DILTIAZEM (CD) 180 MG CAP PO (08:48)
[2018-09-12] MEDS: FERROUS SULFATE (EC) 325 MG TAB PO (08:48)
[2018-09-12] MEDS: NYSTATIN 15 GM CR TOP ×2 (09:54→20:43)
[2018-09-12] MEDS: ONDANSETRON 4 MG INJ IV (10:35)
[2018-09-12] MEDS: ARFORMOTEROL TARTRATE 15MCG/2 ML AMP INH (19:29)
[2018-09-12] MEDS: BUDESONIDE (NEB) 0.5MG/2ML AMP INH (19:30)
[2018-09-12] MEDS: traZODone 50 MG TAB PO (20:41)
[2018-09-12] MEDS: ATORVASTATIN 40 MG TAB PO (20:41)
[2018-09-13] MEDS: PANTOPRAZOLE (EC) 40 MG TAB PO (07:25)
[2018-09-13 08:42] LABS: ADD MAN DIFF? NO
[2018-09-13 08:44] LABS: BASOPHILS % 0.5 % (0.0-2.0); EOSINOPHILS # 0.1 10^3/ul (0.0-0.5); EOSINOPHILS % 0.9 % (0.0-7.0); HEMOGLOBIN 10.6 g/dl (12.0-16.0); LYMPHOCYTES # 1.5 10^3/ul (0.8-2.9); LYMPHOCYTES % 16.9 % (15.0-51.0); MEAN CORPUSCULAR HGB CONC 31.2 g/dl (32.0-37.0); MEAN CORPUSCULAR VOLUME 86.5 fl (82.0-101.0); MEAN PLATELET VOLUME 11.3 fl (7.4-10.4); MONOCYTE # 0.7 10^3/ul (0.3-0.9); MONOCYTES % 8.2 % (0.0-11.0); NEUTROPHIL # 6.4 10^3/ul (1.6-7.5); NEUTROPHILS % 73.2 % (39.0-77.0); PLATELET COUNT 232 10^3/UL (140-415); RED BLOOD COUNT 3.93 10^6/ul (4.20-5.40); RED CELL DISTRIBUTION WIDTH 15.5 % (11.5-14.5)
[2018-09-13 08:44] LABS: WHITE BLOOD COUNT 8.8 10^3/ul (4.8-10.8)
[2018-09-13] MEDS: ARFORMOTEROL TARTRATE 15MCG/2 ML AMP INH ×2 (08:48→20:11)
[2018-09-13] MEDS: BUDESONIDE (NEB) 0.5MG/2ML AMP INH ×2 (08:48→20:11)
[2018-09-13] MEDS: FERROUS SULFATE (EC) 325 MG TAB PO (08:55)
[2018-09-13] MEDS: LORATADINE 10 MG TAB PO (08:56)
[2018-09-13] MEDS: METHIMAZOLE 5 MG TAB PO ×2 (08:57→21:27)
[2018-09-13] MEDS: predniSONE 20 MG TAB PO (08:57)
[2018-09-13] MEDS: APIXABAN 5 MG TABLET PO ×2 (08:57→21:27)
[2018-09-13] MEDS: DILTIAZEM (CD) 180 MG CAP PO (08:57)
[2018-09-13] MEDS: METOPROLOL 100 MG TAB PO ×2 (08:58→21:28)
[2018-09-13] MEDS: NYSTATIN 15 GM CR TOP ×2 (08:59→21:29)
[2018-09-13] MEDS: BUMETANIDE 2 MG in DEXTROSE 5% 17 ML IV ×2 (09:00→21:26)
[2018-09-13 09:16] LABS: POTASSIUM 3.4 mmol/L (3.5-5.1)
[2018-09-13 09:21] LABS: ANION GAP 12 (5-13); BLOOD UREA NITROGEN 64 mg/dl (7-20); CARBON DIOXIDE 32 mmol/L (21-31); CHLORIDE 96 mmol/L (97-110); GLUCOSE 112 mg/dl (70-220); MAGNESIUM 1.9 mg/dl (1.7-2.5); PHOSPHORUS 4.3 mg/dl (2.5-4.9); SODIUM 140 mmol/L (135-144)
[2018-09-13] MEDS: ONDANSETRON 4 MG INJ IV (12:59)
[2018-09-13] MEDS: morphine 2 MG INJ IV (18:51)
[2018-09-13] MEDS: ATORVASTATIN 40 MG TAB PO (21:27)
[2018-09-13] MEDS: traZODone 50 MG TAB PO (21:27)
[2018-09-14] MEDS: BUMETANIDE 2 MG in DEXTROSE 5% 17 ML IV ×2 (09:01→22:13)
[2018-09-14] MEDS: FERROUS SULFATE (EC) 325 MG TAB PO (09:02)
[2018-09-14] MEDS: predniSONE 20 MG TAB PO (09:02)
[2018-09-14] MEDS: APIXABAN 5 MG TABLET PO ×2 (09:02→22:16)
[2018-09-14] MEDS: PANTOPRAZOLE (EC) 40 MG TAB PO (09:02)
[2018-09-14] MEDS: LORATADINE 10 MG TAB PO (09:02)
[2018-09-14] MEDS: METOPROLOL 100 MG TAB PO ×2 (09:04→22:16)
[2018-09-14] MEDS: METHIMAZOLE 5 MG TAB PO ×2 (09:05→22:13)
[2018-09-14] MEDS: DILTIAZEM (CD) 180 MG CAP PO (09:06)
[2018-09-14] MEDS: NYSTATIN 15 GM CR TOP ×2 (09:10→22:13)
[2018-09-14 09:13] LABS: ANION GAP 11 (5-13); BLOOD UREA NITROGEN 63 mg/dl (7-20); CALCIUM 9.3 mg/dl (8.4-10.2); CARBON DIOXIDE 33 mmol/L (21-31); CHLORIDE 96 mmol/L (97-110); CREATININE 2.05 mg/dl (0.44-1.00); GLUCOSE 151 mg/dl (70-220); MAGNESIUM 1.9 mg/dl (1.7-2.5); PHOSPHORUS 3.5 mg/dl (2.5-4.9); POTASSIUM 3.2 mmol/L (3.5-5.1); SODIUM 140 mmol/L (135-144)
[2018-09-14] MEDS: ARFORMOTEROL TARTRATE 15MCG/2 ML AMP INH ×2 (09:49→21:29)
[2018-09-14] MEDS: BUDESONIDE (NEB) 0.5MG/2ML AMP INH ×2 (09:50→21:29)
[2018-09-14 11:21] LABS: MITOCHONDRIAL TB NEGATIVE (NEGATIVE); SMOOTH MUSCLE AB SCREEN POSITIVE (NEGATIVE)
[2018-09-14] MEDS: ONDANSETRON 4 MG INJ IV (11:39)
[2018-09-14 13:47] LABS: ANA SCREEN NEGATIVE (NEGATIVE)
[2018-09-14] MEDS: MAGNESIUM SULFATE 2 GM/50 ML 50 ML IVPB (15:09)
[2018-09-14] MEDS: POTASSIUM CHLORIDE (SR) 20 MEQ TAB PO (15:09)
[2018-09-14] MEDS: ATORVASTATIN 40 MG TAB PO (22:13)
[2018-09-14] MEDS: traZODone 50 MG TAB PO (22:14)
[2018-09-15] MEDS: PANTOPRAZOLE (EC) 40 MG TAB PO (08:47)
[2018-09-15] MEDS: POTASSIUM CHLORIDE (SR) 20 MEQ TAB PO (08:48)
[2018-09-15] MEDS: DILTIAZEM (CD) 180 MG CAP PO (08:48)
[2018-09-15] MEDS: FERROUS SULFATE (EC) 325 MG TAB PO (08:48)
[2018-09-15] MEDS: METOPROLOL 100 MG TAB PO ×2 (08:49→20:57)
[2018-09-15] MEDS: predniSONE 20 MG TAB PO (08:49)
[2018-09-15] MEDS: METHIMAZOLE 5 MG TAB PO ×2 (08:50→20:58)
[2018-09-15] MEDS: APIXABAN 5 MG TABLET PO ×2 (08:50→20:57)
[2018-09-15] MEDS: LORATADINE 10 MG TAB PO (08:50)
[2018-09-15] MEDS: BUMETANIDE 2 MG in DEXTROSE 5% 17 ML IV ×2 (08:51→20:58)
[2018-09-15] MEDS: NYSTATIN 15 GM CR TOP ×2 (08:59→20:58)
[2018-09-15] MEDS: METOLAZONE 5 MG TAB PO ×2 (10:08→19:48)
[2018-09-15 10:42] LABS: ADD MAN DIFF? NO
[2018-09-15 10:46] LABS: WHITE BLOOD COUNT 9.5 10^3/ul (4.8-10.8)
[2018-09-15 10:46] LABS: BASOPHILS % 0.2 % (0.0-2.0); EOSINOPHILS % 0.4 % (0.0-7.0); HEMATOCRIT 35.4 % (37.0-47.0); HEMOGLOBIN 11.1 g/dl (12.0-16.0); LYMPHOCYTES # 1.5 10^3/ul (0.8-2.9); LYMPHOCYTES % 15.6 % (15.0-51.0); MEAN CORPUSCULAR HEMOGLOBIN 26.9 pg (29.0-33.0); MEAN CORPUSCULAR HGB CONC 31.4 g/dl (32.0-37.0); MEAN CORPUSCULAR VOLUME 85.7 fl (82.0-101.0); MEAN PLATELET VOLUME 11.4 fl (7.4-10.4); MONOCYTE # 0.9 10^3/ul (0.3-0.9); MONOCYTES % 8.9 % (0.0-11.0); NEUTROPHIL # 7.1 10^3/ul (1.6-7.5); NEUTROPHILS % 74.5 % (39.0-77.0); PLATELET COUNT 240 10^3/UL (140-415); RED BLOOD COUNT 4.13 10^6/ul (4.20-5.40); RED CELL DISTRIBUTION WIDTH 15.5 % (11.5-14.5)
[2018-09-15 11:06] LABS: ANION GAP 10 (5-13); BLOOD UREA NITROGEN 62 mg/dl (7-20); CARBON DIOXIDE 34 mmol/L (21-31); CHLORIDE 96 mmol/L (97-110); GLUCOSE 133 mg/dl (70-220); MAGNESIUM 2.3 mg/dl (1.7-2.5); PHOSPHORUS 2.9 mg/dl (2.5-4.9); POTASSIUM 3.2 mmol/L (3.5-5.1); SODIUM 140 mmol/L (135-144)
[2018-09-15 11:40] LABS: FREE T4 (FREE THYROXINE) 3.36 ng/dl (0.85-1.93)
[2018-09-15 11:41] LABS: FREE T3 4.54 pg/ml (2.77-5.27)
[2018-09-15] MEDS: ARFORMOTEROL TARTRATE 15MCG/2 ML AMP INH ×2 (11:55→20:05)
[2018-09-15] MEDS: BUDESONIDE (NEB) 0.5MG/2ML AMP INH ×2 (11:55→20:05)
[2018-09-15] MEDS: HYOSCYAMINE 0.125 MG SUBL TAB PO ×2 (18:00→19:36)
[2018-09-15] MEDS: traZODone 50 MG TAB PO (20:58)
[2018-09-15] MEDS: LUBIPROSTONE 24 MCG CAP PO (20:58)
[2018-09-15] MEDS: ATORVASTATIN 40 MG TAB PO (21:00)
[2018-09-16 05:56] LABS: ADD MAN DIFF? NO
[2018-09-16 06:08] LABS: BASOPHILS % 0.1 % (0.0-2.0); EOSINOPHILS % 0.1 % (0.0-7.0); HEMOGLOBIN 10.8 g/dl (12.0-16.0); LYMPHOCYTES % 10.7 % (15.0-51.0); MEAN CORPUSCULAR HEMOGLOBIN 26.9 pg (29.0-33.0); MEAN CORPUSCULAR HGB CONC 31.8 g/dl (32.0-37.0); MEAN CORPUSCULAR VOLUME 84.6 fl (82.0-101.0); MEAN PLATELET VOLUME 11.1 fl (7.4-10.4); MONOCYTE # 0.9 10^3/ul (0.3-0.9); MONOCYTES % 9.2 % (0.0-11.0); NEUTROPHIL # 7.5 10^3/ul (1.6-7.5); NEUTROPHILS % 79.5 % (39.0-77.0); PLATELET COUNT 233 10^3/UL (140-415); RED BLOOD COUNT 4.02 10^6/ul (4.20-5.40); RED CELL DISTRIBUTION WIDTH 15.3 % (11.5-14.5)
[2018-09-16 06:08] LABS: WHITE BLOOD COUNT 9.4 10^3/ul (4.8-10.8)
[2018-09-16] MEDS: HYOSCYAMINE 0.125 MG SUBL TAB PO (06:13)
[2018-09-16 06:34] LABS: ANION GAP 8 (5-13); BLOOD UREA NITROGEN 65 mg/dl (7-20); CALCIUM 9.1 mg/dl (8.4-10.2); CARBON DIOXIDE 37 mmol/L (21-31); CHLORIDE 94 mmol/L (97-110); CREATININE 1.75 mg/dl (0.44-1.00); GLUCOSE 164 mg/dl (70-220); MAGNESIUM 2.1 mg/dl (1.7-2.5); PHOSPHORUS 3.2 mg/dl (2.5-4.9); POTASSIUM 3.4 mmol/L (3.5-5.1); SODIUM 139 mmol/L (135-144)
[2018-09-16] MEDS: PANTOPRAZOLE (EC) 40 MG TAB PO (07:25)
[2018-09-16] MEDS: BUDESONIDE (NEB) 0.5MG/2ML AMP INH ×2 (08:44→20:51)
[2018-09-16] MEDS: ARFORMOTEROL TARTRATE 15MCG/2 ML AMP INH ×2 (08:44→20:51)
[2018-09-16] MEDS: METOPROLOL 100 MG TAB PO ×2 (08:52→20:45)
[2018-09-16] MEDS: DILTIAZEM (CD) 180 MG CAP PO (08:52)
[2018-09-16] MEDS: LUBIPROSTONE 24 MCG CAP PO (08:52)
[2018-09-16] MEDS: LORATADINE 10 MG TAB PO (08:52)
[2018-09-16] MEDS: predniSONE 20 MG TAB PO (08:52)
[2018-09-16] MEDS: NYSTATIN 15 GM CR TOP ×2 (08:53→20:49)
[2018-09-16] MEDS: METHIMAZOLE 5 MG TAB PO ×2 (08:53→20:38)
[2018-09-16] MEDS: APIXABAN 5 MG TABLET PO ×2 (08:56→20:38)
[2018-09-16] MEDS: BUMETANIDE 2 MG in DEXTROSE 5% 17 ML IV ×2 (08:56→20:37)
[2018-09-16] MEDS: FERROUS SULFATE (EC) 325 MG TAB PO (08:58)
[2018-09-16] MEDS: POTASSIUM CHLORIDE (SR) 20 MEQ TAB PO (20:37)
[2018-09-16] MEDS: ATORVASTATIN 40 MG TAB PO (20:38)
[2018-09-16] MEDS: traZODone 50 MG TAB PO (20:38)
[2018-09-17] MEDS: METHIMAZOLE 5 MG TAB PO ×2 (08:08→21:37)
[2018-09-17] MEDS: PANTOPRAZOLE (EC) 40 MG TAB PO (08:08)
[2018-09-17] MEDS: predniSONE 20 MG TAB PO (08:08)
[2018-09-17] MEDS: DILTIAZEM (CD) 180 MG CAP PO (08:09)
[2018-09-17] MEDS: METOPROLOL 100 MG TAB PO ×2 (08:10→21:00)
[2018-09-17] MEDS: NYSTATIN 15 GM CR TOP ×2 (08:10→21:38)
[2018-09-17] MEDS: APIXABAN 5 MG TABLET PO ×2 (08:11→21:37)
[2018-09-17] MEDS: BUMETANIDE 2 MG in DEXTROSE 5% 17 ML IV (08:17)
[2018-09-17] MEDS: ARFORMOTEROL TARTRATE 15MCG/2 ML AMP INH ×2 (09:00→20:49)
[2018-09-17] MEDS: BUDESONIDE (NEB) 0.5MG/2ML AMP INH ×2 (09:53→20:49)
[2018-09-17] MEDS: ACETAZOLAMIDE 500 MG INJ IV (21:37)
[2018-09-17] MEDS: ATORVASTATIN 40 MG TAB PO (21:37)
[2018-09-17] MEDS: traZODone 50 MG TAB PO (21:38)
[2018-09-18] MEDS: PANTOPRAZOLE (EC) 40 MG TAB PO (07:51)
[2018-09-18] MEDS: predniSONE 20 MG TAB PO (08:49)
[2018-09-18] MEDS: APIXABAN 5 MG TABLET PO ×2 (08:49→21:49)
[2018-09-18] MEDS: NYSTATIN 15 GM CR TOP ×2 (08:49→21:49)
[2018-09-18] MEDS: DILTIAZEM (CD) 180 MG CAP PO (08:50)
[2018-09-18] MEDS: METOPROLOL 100 MG TAB PO ×2 (08:51→21:00)
[2018-09-18] MEDS: BUMETANIDE 2 MG in DEXTROSE 5% 17 ML IV ×2 (08:52→21:48)
[2018-09-18] MEDS: BUDESONIDE (NEB) 0.5MG/2ML AMP INH ×2 (09:14→20:49)
[2018-09-18] MEDS: ARFORMOTEROL TARTRATE 15MCG/2 ML AMP INH ×2 (09:14→20:49)
[2018-09-18] MEDS: METHIMAZOLE 10 MG TAB PO (09:40)
[2018-09-18] MEDS: ATORVASTATIN 40 MG TAB PO (21:48)
[2018-09-18] MEDS: METHIMAZOLE 5 MG TAB PO (21:48)
[2018-09-18] MEDS: traZODone 50 MG TAB PO (21:49)
[2018-09-19] MEDS: PANTOPRAZOLE (EC) 40 MG TAB PO (07:48)
[2018-09-19] MEDS: BUDESONIDE (NEB) 0.5MG/2ML AMP INH ×2 (08:07→21:19)
[2018-09-19] MEDS: ARFORMOTEROL TARTRATE 15MCG/2 ML AMP INH ×2 (08:07→21:19)
[2018-09-19] MEDS: METHIMAZOLE 5 MG TAB PO ×2 (08:29→20:43)
[2018-09-19] MEDS: BUMETANIDE 2 MG in DEXTROSE 5% 17 ML IV (08:32)
[2018-09-19] MEDS: DILTIAZEM (CD) 180 MG CAP PO (08:33)
[2018-09-19] MEDS: APIXABAN 5 MG TABLET PO ×2 (08:33→20:43)
[2018-09-19] MEDS: predniSONE 20 MG TAB PO (08:34)
[2018-09-19] MEDS: METOPROLOL 100 MG TAB PO ×2 (09:00→20:44)
[2018-09-19] MEDS: NYSTATIN 15 GM CR TOP ×2 (09:17→20:44)
[2018-09-19] MEDS: morphine 2 MG INJ IV (09:22)
[2018-09-19 10:56] LABS: ADD MAN DIFF? NO
[2018-09-19 11:04] LABS: BASOPHILS % 0.1 % (0.0-2.0); EOSINOPHILS # 0.1 10^3/ul (0.0-0.5); EOSINOPHILS % 0.9 % (0.0-7.0); HEMATOCRIT 38.4 % (37.0-47.0); LYMPHOCYTES # 2.3 10^3/ul (0.8-2.9); LYMPHOCYTES % 14.9 % (15.0-51.0); MEAN CORPUSCULAR HEMOGLOBIN 26.7 pg (29.0-33.0); MEAN CORPUSCULAR HGB CONC 31.3 g/dl (32.0-37.0); MEAN CORPUSCULAR VOLUME 85.3 fl (82.0-101.0); MEAN PLATELET VOLUME 10.8 fl (7.4-10.4); MONOCYTE # 1.1 10^3/ul (0.3-0.9); MONOCYTES % 7.4 % (0.0-11.0); NEUTROPHIL # 11.6 10^3/ul (1.6-7.5); PLATELET COUNT 260 10^3/UL (140-415); RED CELL DISTRIBUTION WIDTH 15.2 % (11.5-14.5)
[2018-09-19 11:04] LABS: WHITE BLOOD COUNT 15.3 10^3/ul (4.8-10.8)
[2018-09-19 11:19] LABS: ANION GAP 11 (5-13); BLOOD UREA NITROGEN 52 mg/dl (7-20); CALCIUM 9.7 mg/dl (8.4-10.2); CARBON DIOXIDE 37 mmol/L (21-31); CHLORIDE 91 mmol/L (97-110); CREATININE 1.56 mg/dl (0.44-1.00); GLUCOSE 142 mg/dl (70-220); PHOSPHORUS 2.9 mg/dl (2.5-4.9); POTASSIUM 3.1 mmol/L (3.5-5.1); SODIUM 139 mmol/L (135-144)
[2018-09-19 12:17] LABS: FREE T4 (FREE THYROXINE) 2.29 ng/dl (0.85-1.93)
[2018-09-19 12:38] LABS: FREE T3 3.44 pg/ml (2.77-5.27)
[2018-09-19] MEDS: POTASSIUM CHLORIDE (SR) 20 MEQ TAB PO (13:00)
[2018-09-19] MEDS: SPIRONOLACTONE 25 MG TAB PO (13:00)
[2018-09-19] MEDS: ACETAZOLAMIDE 500 MG INJ IV (14:17)
[2018-09-19 17:30] LABS: THYROID STIMULATING HORMONE < 0.015 MIU/L (0.465-4.680)
[2018-09-19 20:37] LABS: ANION GAP 10 (5-13); BLOOD UREA NITROGEN 54 mg/dl (7-20); CALCIUM 9.3 mg/dl (8.4-10.2); CARBON DIOXIDE 37 mmol/L (21-31); CHLORIDE 92 mmol/L (97-110); CREATININE 1.51 mg/dl (0.44-1.00); GLUCOSE 178 mg/dl (70-220); POTASSIUM 4.2 mmol/L (3.5-5.1); SODIUM 139 mmol/L (135-144)
[2018-09-19] MEDS: ATORVASTATIN 40 MG TAB PO (20:43)
[2018-09-19] MEDS: traZODone 50 MG TAB PO (20:43)
[2018-09-20 05:10] LABS: ADD MAN DIFF? NO
[2018-09-20 05:18] LABS: BASOPHILS % 0.1 % (0.0-2.0); EOSINOPHILS % 0.1 % (0.0-7.0); HEMATOCRIT 37.2 % (37.0-47.0); HEMOGLOBIN 11.7 g/dl (12.0-16.0); LYMPHOCYTES % 7.5 % (15.0-51.0); MEAN CORPUSCULAR HGB CONC 31.5 g/dl (32.0-37.0); MEAN CORPUSCULAR VOLUME 85.7 fl (82.0-101.0); MEAN PLATELET VOLUME 11.1 fl (7.4-10.4); MONOCYTE # 0.9 10^3/ul (0.3-0.9); MONOCYTES % 6.9 % (0.0-11.0); NEUTROPHIL # 10.8 10^3/ul (1.6-7.5); NEUTROPHILS % 84.6 % (39.0-77.0); PLATELET COUNT 255 10^3/UL (140-415); RED BLOOD COUNT 4.34 10^6/ul (4.20-5.40); RED CELL DISTRIBUTION WIDTH 15.5 % (11.5-14.5)
[2018-09-20 05:18] LABS: WHITE BLOOD COUNT 12.8 10^3/ul (4.8-10.8)
[2018-09-20 05:36] LABS: ANION GAP 10 (5-13); BLOOD UREA NITROGEN 53 mg/dl (7-20); CALCIUM 9.3 mg/dl (8.4-10.2); CARBON DIOXIDE 34 mmol/L (21-31); CHLORIDE 97 mmol/L (97-110); CREATININE 1.56 mg/dl (0.44-1.00); GLUCOSE 127 mg/dl (70-220); MAGNESIUM 2.1 mg/dl (1.7-2.5); PHOSPHORUS 3.2 mg/dl (2.5-4.9); POTASSIUM 3.9 mmol/L (3.5-5.1); SODIUM 141 mmol/L (135-144)
[2018-09-20] MEDS: POLYETHYLENE GLYCOL 17 GM PACKET PO (08:35)
[2018-09-20] MEDS: METOPROLOL 100 MG TAB PO ×2 (08:36→20:19)
[2018-09-20] MEDS: SPIRONOLACTONE 25 MG TAB PO (08:36)
[2018-09-20] MEDS: DILTIAZEM (CD) 180 MG CAP PO (08:37)
[2018-09-20] MEDS: APIXABAN 5 MG TABLET PO ×2 (08:37→20:19)
[2018-09-20] MEDS: predniSONE 20 MG TAB PO (08:38)
[2018-09-20] MEDS: METHIMAZOLE 5 MG TAB PO ×2 (08:38→20:17)
[2018-09-20] MEDS: PANTOPRAZOLE (EC) 40 MG TAB PO (08:38)
[2018-09-20] MEDS: NYSTATIN 15 GM CR TOP ×2 (08:40→20:20)
[2018-09-20] MEDS: ARFORMOTEROL TARTRATE 15MCG/2 ML AMP INH ×2 (09:08→19:53)
[2018-09-20] MEDS: BUDESONIDE (NEB) 0.5MG/2ML AMP INH ×2 (09:08→19:53)
[2018-09-20] MEDS: ACETAZOLAMIDE 500 MG INJ IV (10:25)
[2018-09-20] MEDS: ATORVASTATIN 40 MG TAB PO (20:19)
[2018-09-20] MEDS: traZODone 50 MG TAB PO (20:19)
[2018-09-20] MEDS: SUCRALFATE 1 GM TAB PO (20:19)
[2018-09-20] MEDS: SENNA TAB PO (20:20)
[2018-09-20] MEDS: DOCUSATE SODIUM 100 MG CAP PO (20:20)
[2018-09-21 07:00] LABS: ANION GAP 12 (5-13); BLOOD UREA NITROGEN 55 mg/dl (7-20); CALCIUM 9.3 mg/dl (8.4-10.2); CARBON DIOXIDE 30 mmol/L (21-31); CHLORIDE 98 mmol/L (97-110); CREATININE 1.52 mg/dl (0.44-1.00); GLUCOSE 115 mg/dl (70-220); MAGNESIUM 2.3 mg/dl (1.7-2.5); PHOSPHORUS 3.2 mg/dl (2.5-4.9); POTASSIUM 4.2 mmol/L (3.5-5.1); SODIUM 140 mmol/L (135-144)
[2018-09-21] MEDS: PANTOPRAZOLE (EC) 40 MG TAB PO (07:25)
[2018-09-21] MEDS: ARFORMOTEROL TARTRATE 15MCG/2 ML AMP INH (08:29)
[2018-09-21] MEDS: BUDESONIDE (NEB) 0.5MG/2ML AMP INH (08:29)
[2018-09-21] MEDS: METHIMAZOLE 5 MG TAB PO (08:55)
[2018-09-21] MEDS: predniSONE 20 MG TAB PO (08:56)
[2018-09-21] MEDS: SUCRALFATE 1 GM TAB PO ×2 (08:56→12:58)
[2018-09-21] MEDS: APIXABAN 5 MG TABLET PO (08:56)
[2018-09-21] MEDS: SPIRONOLACTONE 25 MG TAB PO (08:57)
[2018-09-21] MEDS: DILTIAZEM (CD) 180 MG CAP PO (08:57)
[2018-09-21] MEDS: METOPROLOL 100 MG TAB PO (08:57)
[2018-09-21] MEDS: SENNA TAB PO (08:59)
[2018-09-21] MEDS: DOCUSATE SODIUM 100 MG CAP PO (08:59)
[2018-09-21] MEDS: POLYETHYLENE GLYCOL 17 GM PACKET PO (08:59)
[2018-09-21] MEDS: NYSTATIN 15 GM CR TOP (08:59)
[2018-09-21] MEDS: morphine 2 MG INJ IV (12:55)
[2018-09-21] MEDS ORDERED: BUMETANIDE 1 MG TAB PO (18:00)
== END 2018-09-21 15:40 | disposition home or self-care (01) | DRG 291 ==
LOC: E/R 10:58 → TEL 12:21
PROVIDERS: Internal Medicine
PROC: 3E0F7GC Introduction of Other Therapeutic Substance into Respiratory Tract, Via Natural or Artificial Opening (ICD-10-PCS; principal; 2018-09-08)
DX: I13.0 Hypertensive heart and chronic kidney disease with heart failure and stage 1 through stage 4 chronic kidney disease, or unspecified chronic kidney disease (principal); I50.43 Acute on chronic combined systolic (congestive) and diastolic (congestive) heart failure; N17.9 Acute kidney failure, unspecified; N18.9 Chronic kidney disease, unspecified; I48.91 Unspecified atrial fibrillation; E05.90 Thyrotoxicosis, unspecified without thyrotoxic crisis or storm; I42.9 Cardiomyopathy, unspecified; D64.9 Anemia, unspecified; G47.00 Insomnia, unspecified; M25.562 Pain in left knee; G89.29 Other chronic pain; K83.8 Other specified diseases of biliary tract; K74.60 Unspecified cirrhosis of liver; K80.20 Calculus of gallbladder without cholecystitis without obstruction; I07.1 Rheumatic tricuspid insufficiency; E87.5 Hyperkalemia; K59.00 Constipation, unspecified
CPT/HCPCS: 36415; 71045; 71250; 74176; 74181; 76700; 78226; 80048; 80053; 80061; 81001; 81003; 82043; 82550; 82553; 82728; 83036; 83540; 83735; 83880; 84100; 84155; 84300; 84439; 84443; 84481; 84484; 85025; 85610; 85651; 85730; 86038; 86255; 86706; 86708; 86803; 87338; 87340; 93005; 94640; 94664; 96374; 96375; 97116; 97162; 97530; 99285-25